=== PATIENT | female | born 1980 | race Caucasian/White ===

== ENCOUNTER → 2017-12-25 16:22 | Outpatient (CLI) | payer OTHER, MEDICAID, SELFPAY ==
[2018-01-01 10:46] LABS: AFP 54.6 ng/mL; Hx of Neural Tube Defect N; Inhibin A Value 241 pg/mL; Number of Fetuses 1; Prev Pregnancy with Down Syndr N
== END ==
PROVIDERS: PCP Obstetrics & Gynecology; Visit Provider Obstetrics & Gynecology
DX: Z34.82 Encounter for supervision of other normal pregnancy, second trimester (principal)
CPT/HCPCS: 36415; 82105; 82677; 84702; 86336

== ENCOUNTER → 2018-01-09 13:41 | Outpatient (CLI) | payer OTHER, MEDICAID, SELFPAY ==
--- NOTE | 2018-01-09 13:43 | DI.US.S_ITS ---
PROCEDURE: US OB >= 14 WEEKS FETUS INDICATIONS: 20 week anatomic survey OUTSIDE/PRIOR DATING DATA: Last menstrual period (LMP): 08/21/17. LMP-based estimated date of delivery (IRIS): 05/28/18. First dating scan (date and location): 10/29/17. Estimated date of delivery (IRIS) from first dating scan: 05/27/18. TECHNIQUE: Real-time scanning was performed of the fetus, with image documentation and biometric measurements. Endovaginal scanning: No COMPARISON: [facility] [facility], , OB >= 14 WEEKS FETUS, 12/25/2017, 16:14. FINDINGS: General: A single living intrauterine gestation is present. Presentation: Breech. Placenta: Placental position is posterior, without previa. Amniotic fluid index: 17.1 cm, normal range is 5-24 cm. heart rate: 150 beats per minute. Maternal cervical canal: 3.0 cm long. Normal lower limit is 2.5 cm. biometrics: Biparietal diameter: 20 weeks Head circumference: 20 weeks 2 days Abdominal circumference: 21 weeks 5 days Femur length: 21 weeks 1 day Estimated gestational age from initial scan: 20 weeks 2 days Composite gestational age from present scan: 20 weeks 6 days Estimated weight and percentile: 111 g; 92nd percentile Measurement variability for biometric dating: +/- 7 days from 14 weeks to 15 weeks 6 days gestation, +/- 10 days from 16 weeks to 21 weeks 6 days gestation, +/- 2 weeks from 22 weeks to 27 weeks 6 days gestation, +/- 3 weeks for 28 weeks gestation or later. weight reference: 4500 g or EFW >90/95% is considered macrosomia or large for gestational age. EFW <10% is small for gestational age. EFW 5% or less is considered intra-uterine growth restriction. Anatomic survey: Neuro: Ventricles are non-dilated at less than 10 mm. Cisterna magna is normal at 3-11 mm. Cerebellum is normal in size and morphology. Nuchal skin fold: Normal at less than 6 mm between 14-21 weeks gestational age. Face: Nose and lips, facial profile are normal. Spine: No evidence for spina bifida. Heart: 4-chambered heart is present, with normal ventricular outflow tracts. Diaphragm: Diaphragm is intact. Stomach: Left-sided stomach is present. Kidneys: No hydronephrosis. Normal is less than 5 mm in 2nd trimester, less than 7 mm in 3rd trimester. Cord: 3-vessel cord has orthotopic insertion. Bladder: Normal in size. Extremities: All 4 extremities identified. IMPRESSION: 1. Single living IUP redemonstrated and interval growth is upper limits of normal. 2. Normal anatomic survey. Dictated by: Jeet Mendoza [facility] Interpreted: Neetu Keys MD on 01/09/2018 at 14:37 Approved by: Neetu Keys MD, PhD on 01/09/2018 at 15:12
== END ==
PROVIDERS: PCP Obstetrics & Gynecology; Visit Provider Obstetrics & Gynecology
DX: Z34.92 Encounter for supervision of normal pregnancy, unspecified, second trimester (principal); Z36.89 Encounter for other specified antenatal screening; Z3A.20 20 weeks gestation of pregnancy
CPT/HCPCS: 76811

== ENCOUNTER → 2018-02-18 08:13 | Outpatient (CLI) | payer OTHER, MEDICAID, SELFPAY ==
[2018-02-18 11:02] LABS: GTT (PREG) 1 Hour PP 50gm Dose 170 mg/dL (76-139)
[2018-02-18 11:22] LABS: Hematocrit 35.1 % (36-46); Hemoglobin 12.2 g/dL (12.0-16.0)
== END ==
PROVIDERS: PCP Obstetrics & Gynecology; Visit Provider Obstetrics & Gynecology
DX: Z34.82 Encounter for supervision of other normal pregnancy, second trimester (principal)
CPT/HCPCS: 36415; 82950; 85014; 85018

== ENCOUNTER → 2018-03-04 07:30 | Outpatient (CLI) | payer OTHER, MEDICAID, SELFPAY ==
[2018-03-04 09:30] LABS: Glucose Fasting Gestational 84 mg/dL (76-95)
[2018-03-04 10:53] LABS: Glucose Tol Interp,Gestational INTERPRETATION
[2018-03-04 11:30] LABS: Glucose 2 Hour Gest 147 mg/dL (76-155)
[2018-03-04 13:58] LABS: Glucose 3 Hour Gest 104 mg/dL (76-140)
[2018-03-04 14:45] LABS: Glucose 1 Hour Gest 178 mg/dL (76-180)
== END ==
PROVIDERS: PCP Obstetrics & Gynecology; Visit Provider Obstetrics & Gynecology
DX: O99.810 Abnormal glucose complicating pregnancy (principal)
CPT/HCPCS: 36415; 82951; 82952

== ENCOUNTER → 2018-04-23 12:56 | Outpatient (CLI) | payer OTHER, MEDICAID, SELFPAY ==
[2018-04-24 13:03] LABS: Strep Grp B PCR POS for Grp B Strep
== END ==
PROVIDERS: PCP Obstetrics & Gynecology; Visit Provider Obstetrics & Gynecology
DX: Z3A.35 35 weeks gestation of pregnancy (principal)
CPT/HCPCS: 87653

== ENCOUNTER 2018-05-20 07:55 | Inpatient (IN) | payer OTHER, MEDICAID, SELFPAY ==
--- NOTE | 2018-05-20 08:02 | PM.PREOP ---
Pre-operative Note Interval Note Pre-op Check: Yes History & Physical Reviewed by Physician Changes: No
[2018-05-20 09:00] LABS: Add Manual Diff / Slide Review NO; Basophils Percent Auto 0.7 % (0-2); Eosinophils Percent Auto 1.9 % (2-4); Hematocrit 36.1 % (36-46); Hemoglobin 12.2 g/dL (12.0-16.0); Mean Corpuscular HGB Conc 33.9 % (30-36); Mean Corpuscular Hemoglobin 29.1 PG (26-34); Mean Corpuscular Volume 85.8 fL (80-100); Monocytes Percent Auto 8.6 % (3-14); Neutrophils Absolute Auto 8400 /uL (3000-5900); Neutrophils Percent Auto 67.8 % (50-75); Platelet Count 312 X10^3/uL (150-400); Red Blood Cell Count 4.21 X10^6/uL (4.0-5.2); Red Cell Distribution Width 13.8 % (11.6-14.8); White Blood Cell Count 12.4 X10^3/uL (4.5-11.0)
[2018-05-20] MEDS: CEFAZOLIN 2 GM/100 ML FROZ.PIGGY IV (10:41)
--- NOTE | 2018-05-20 11:14 | SUR.OPER ---
Supine on Padded OR bed, head on pillow, safety belt at thigh, arms secured on padded arm boards at <90 degrees abduction. Bump under right buttock. Legs uncrossed with pillow under knees, gel pad to heels, tape over blanket to lower legs.
[2018-05-20] MEDS: LACTATED RINGERS 1,000 ML 100 ML IV ×3 (11:25→22:19)
--- NOTE | 2018-05-20 12:02 | SUR.OPER ---
FHT preoperative =143, live female at 1119, APGARS 8/9
[2018-05-20 12:04] VITALS: BP 105/60; PULSE 68; RESP 10; TEMP 36.8; O2SAT 100
[2018-05-20 12:07] VITALS: BP 102/58; PULSE 68; RESP 12; O2SAT 100
[2018-05-20 12:10] VITALS: BP 103/64; PULSE 75; RESP 12; O2SAT 100
[2018-05-20 12:14] VITALS: BP 104/56; PULSE 71; RESP 14; O2SAT 100
[2018-05-20 14:45] VITALS: BP 116/73
[2018-05-20] MEDS: ONDANSETRON 4 MG/2 ML INJ IV ×2 (16:20→20:25)
[2018-05-20] MEDS: KETOROLAC 30 MG/ML VIAL IV ×2 (17:38→23:34)
--- NOTE | 2018-05-21 04:32 | PM.GYNOP.1 ---
Operative Date/Time/Diagnoses Date of procedure: 05/20/18 Time of procedure: 11:35 Pre-op diagnosis: 39 weeks gestation Previous C section x 2 Post-op diagnosis: same Procedure: Procedures Operation Date: 05/20/18 10:00 Actual Procedures Side Surgeon p Section-Repeat Amelie Ramirez MD Indications: 39 weeks gestation Previous section x2 Surgeon: Amelie Ramirez General Duty Nurse: Keyona Combs Anesthesia Type: Spinal (With Duramorph) Operative Notes Findings: Live female infant in the left occiput posterior presentation Normal tubes and ovaries Normal uterus Closure Type: primary Specimen(s): other (Cord bloods, placenta) Applied: catheter Estimated blood loss (mL): 350 Blood products transfused: none Procedure in detail: The patient was taken to the operating room where she was placed in the seated position. Spinal anesthesia with Duramorph was administered. The patient was then placed in the dorsal supine position with a leftward tilt. She was prepped and draped in the usual sterile fashion. A timeout was performed. After spinal analgesia was found to be adequate, a Pfannenstiel skin incision was made through the previous incision and carried through to the underlying layer fascia. The fascia was nicked in the midline, and the incision extended bilaterally with the Lo scissors. The superior aspect of the fascial incision was grasped with a Hartington clamps, elevated, and the underlying rectus muscles dissected off sharply and bluntly. Attention was then turned to the inferior aspect of this incision which in a similar fashion was grasped with a Owen clamps, elevated, and the underlying rectus muscles dissected off sharply and bluntly. The rectus muscles were in the midline. The peritoneum was identified, grasped between 2 hemostats, and entered sharply with the Metzenbaum scissors. This incision was extended superiorly and inferiorly with good visualization of the bladder. The bladder blade was inserted. The vesicouterine peritoneum was identified, grasped with the pickup, and entered sharply with the Metzenbaum scissors. This incision was extended bilaterally, and the bladder flap was created digitally. The bladder blade was reinserted. The lower uterine segment was incised in a transverse fashion with the scalpel. Upon entering the amniotic sac there was moderate amount of clear amniotic fluid. The infant's head was delivered with vacuum assistance. The nose and mouth were suctioned with bulb suction. The remainder of the body delivered without difficulty. The cord was double clamped and cut. The infant was handed off to waiting RN and RT. Pitocin was given in the IV fluids. The placenta was delivered manually. The uterus was cleared of all clots and debris. The uterine incision was repaired with #1 chromic in a running interlocking fashion, and a second layer the same suture was used for an imbricating layer. Hemostasis was achieved. The tubes and ovaries were examined and were found to be normal. The gutters were cleared of all clots and debris. The bladder flap was reapproximated using 2-0 Vicryl in a running fashion. The parietal peritoneum was closed using 2-0 Vicryl in a running fashion. The fascia was reapproximated using 0 Vicryl in a running fashion. The subcutaneous layer was copiously irrigated with warm normal saline. 6 simple interrupted sutures of 3-0 Vicryl were placed to reapproximate the subcutaneous layer. The skin was closed with 4-0 undyed Vicryl in a subcuticular fashion. Steri-Strips were placed. An Aquacell dressing was placed. The uterus was expressed of a small amount of old blood. Sponge, lap, and instrument counts were correct x-2. The patient tolerated the procedure well, and was taken to PACU in stable condition. Complications: none Post-operative Condition: stable Disposition: PACU Plan for aftercare: To Center after recovery
[2018-05-21] MEDS: KETOROLAC 30 MG/ML VIAL IV (05:54)
[2018-05-21 07:06] LABS: Hemoglobin 10.6 g/dL (12.0-16.0)
[2018-05-21] MEDS: PRENATAL VIT,CALC/IRON/FOLIC 1 TABLET 1 TAB PO (08:18)
[2018-05-21] MEDS: DOCUSATE 250 MG CAPSULE PO (08:21)
[2018-05-21] MEDS: IBUPROFEN 600 MG TABLET PO ×3 (12:00→23:10)
--- NOTE | 2018-05-21 23:44 | PM.OBPN.1 ---
Subjective - OB Interval history: Patient is a 37-year-old 3 para 3 postop day # 1 status post repeat low-transverse section Pain is well controlled with ibuprofen. Tolerating a diet. Zacarias catheter has been removed and patient has been able to void. Exam Vital Signs (past 8 hours): Oxygen Delivery Method Room Air Narrative Exam Narrative: Generally: Patient is sitting up in bed, holding , no acute distress Lungs: Clear to auscultation bilaterally Cardiovascular: Regular rate and rhythm Abdomen: Soft, good bowel sounds Fundus: Firm at U -1 Incision: Clean dry and intact with Aquacel dressing Extremities: Negative Homans, no edema Objective Labs Result Diagrams: 05/21/18 06:42 Labs: Laboratory Results - last 24 hr 05/21/18 06:42 Hgb 10.6 L Hct 32.0 L Assessment & Plan (1) Status post repeat low transverse section: Status: Acute Assessment and plan: Assessment: Postop day # 1 status post repeat low-transverse section, doing very well Plan: Continue routine postop care Anticipate discharge 05/22/2018 Current Visit: Yes Plan day: 1 plan OB: routine postop care Time Spent With Patient Total time spent is greater than 50% in coordination of care (as documented) at patient's floor/unit and/or counseling patient: less than 15 minutes
[2018-05-21] MEDS: OXYCODONE/ACETAMINOPHEN 5/325 TABLET 1 TAB PO (23:52)
[2018-05-22] MEDS: OXYCODONE/ACETAMINOPHEN 5/325 TABLET 1 TAB PO (00:44)
[2018-05-22 08:58] VITALS: TEMP 37.1
[2018-05-22] MEDS: IBUPROFEN 600 MG TABLET PO (08:58)
[2018-05-22] MEDS: DOCUSATE 250 MG CAPSULE PO (08:58)
[2018-05-22] MEDS: PRENATAL VIT,CALC/IRON/FOLIC 1 TABLET 1 TAB PO (08:58)
[2018-05-22] MEDS: OXYCODONE/ACETAMINOPHEN 5/325 TABLET 2 TAB PO (08:59)
[2018-05-22 14:24] VITALS: BP 116/73; PULSE 71; RESP 14; TEMP 37.1
--- NOTE | 2018-06-21 15:22 | P.DS_ITS ---
Discharge Providers Date of admission: 05/20/18 07:55 Primary care physician: Amelie Ramirez MD Consults: 05/20/18 14:00 Consult to [employer] [facility] Routine Comment: Discharge provider: Amelie Ramirez MD Discharge Date: 05/22/18 Summary Date Patient Seen: 05/22/18 Time Patient Seen: 07:45 Hospital Course: Patient is a 37-year-old 3 para 3 who presented on 05/20/2018 for a scheduled repeat section. She underwent a repeat section without complication. Her postoperative course was unremarkable and she was discharged home on 2017 Peripartum Data Infant Delivery Method: Section Laceration description: None Episiotomy description: None Procedures: Spinal anesthesia Repeat section complications: none Discharge Diagnosis (1) Status post repeat low transverse section: Status: Acute Status at Discharge Functional status at discharge: independent ambulation Overall status at discharge: patient is progressing back to baseline Time Spent with Patient Total time spent providing and/or coordinating discharge services: Less than 30 minutes Objective Labs Result Diagrams: 05/21/18 06:42 Discharge Plan Discharge Plan Patient Disposition: Home Discharge comment: Call with fever, chills, redness or drainage around incisionorn or bleeding vaginally more than a pad in an hour Discharge Med Rec/Prescriptions Prescriptions: New oxycodone-acetaminophen [Percocet] 5-325 mg tablet 2 tab PO Q4-6H PRN (Reason: pain) Qty: 30 RF: 0 No Action levothyroxine [Synthroid] 75 mcg tablet 0.075 mg PO QAM Qty: 90 RF: 5 Follow up/Referrals: Amelie Ramirez MD [Primary Care Provider] - 1 Week (Appointment with on at 10:00,aquacell removal appointment on at 11:00am) Provider Discharge Instructions Diet: Diet as Tolerated Activity: No heavy lifting Skin/Wound/Dressing Care Report to your healthcare provider any signs of infection, such as:: chills, fever, increased pain and unusual drainage Dressing: Do not remove Visit Report/Discharge Packet Instructions: DI for Visit Report Forms: Stroke Signs & Symptoms Discharge Data Primary Care Provider: Amelie Ramirez Attending Provider: Garde,Amelie A Admit Date/Time: 05/20/18 07:55 Discharges patient from system. Discharge Date/Time: 05/22/18 15:15
== END 2018-05-22 15:15 | disposition home or self-care (01) | DRG 540 ==
PROVIDERS: Admitting Provider Obstetrics & Gynecology; PCP Obstetrics & Gynecology; Visit Provider Obstetrics & Gynecology
PROC: 10D00Z1 Extraction of Products of Conception, Low, Open Approach (ICD-10-PCS; CPT 59514; principal; 2018-05-20 10:00)
DX: O34.219 Maternal care for unspecified type scar from previous cesarean delivery (principal); O64.0XX0 Obstructed labor due to incomplete rotation of fetal head, not applicable or unspecified; Z3A.39 39 weeks gestation of pregnancy; Z37.0 Single live birth
CPT/HCPCS: 36415; 59050; 59514; 85014; 85018; 85025; 86850; 86900; 86901; J0690; J1100; J1885; J2274; J2405; J2590

== ENCOUNTER → 2018-05-30 12:00 | Outpatient (CLI) | payer OTHER, MEDICAID, SELFPAY ==
[2018-05-30 14:22] LABS: Free T3, Triiodothyronine Free 3.61 pg/mL (2.77-5.27)
[2018-05-30 14:35] LABS: Thyroid Stimulating Hormone 1.73 uIU/mL (0.47-4.68)
[2018-05-30 16:03] LABS: Free T4, Direct Thyroxine 1.15 ng/dL (0.78-2.19)
== END ==
PROVIDERS: Family Provider Obstetrics & Gynecology; PCP Family Medicine; Visit Provider Family Medicine
DX: E89.0 Postprocedural hypothyroidism (principal)
CPT/HCPCS: 36415; 84439; 84443; 84481

== ENCOUNTER → 2019-07-18 10:32 | Outpatient (CLI) | payer OTHER, SELFPAY ==
[2019-07-18 12:21] LABS: Free T3, Triiodothyronine Free 3.54 pg/mL (2.77-5.27); Free T4, Direct Thyroxine 1.13 ng/dL (0.78-2.19)
[2019-07-18 12:35] LABS: Thyroid Stimulating Hormone 1.87 uIU/mL (0.47-4.68)
== END ==
PROVIDERS: PCP Family Medicine; Visit Provider Family Medicine
DX: E89.0 Postprocedural hypothyroidism (principal)
CPT/HCPCS: 36415; 84439; 84443; 84481

== ENCOUNTER → 2019-09-10 16:31 | Outpatient (CLI) | payer OTHER, SELFPAY | PROVIDERS: PCP Family Medicine; Visit Provider Obstetrics & Gynecology | DX: R30.0 Dysuria (principal) | CPT/HCPCS: 87077; 87086; 87186 ==

== ENCOUNTER → 2020-08-04 12:53 | Outpatient (CLI) | payer OTHER, SELFPAY ==
--- NOTE | 2020-08-04 12:55 | DI.US.S_ITS ---
PROCEDURE: US THYROID INDICATIONS: STATUS POST THYROIDECTOMY TECHNIQUE: Real-time scanning was performed of the thyroid gland, with image documentation. COMPARISON: None. FINDINGS: Right: Surgically absent Left: Thyroid lobe measures 3.5 x 1.2 x 0.7 cm, and is homogenous in echotexture. Isthmus: 3 mm thick. No discrete thyroid nodule identified IMPRESSION: Status post right thyroidectomy ACR TI-RADS definitions and recommendations: TI-RADS 1 (benign): 0 points. FNA not needed. TI-RADS 2 (not suspicious): 2 points. FNA not needed. TI-RADS 3 (mildly suspicious): 3 points. * FNA if 2.5 cm or larger, follow up if 1.5 cm or larger (at 1, 3, and 5 years). TI-RADS 4 (moderately suspicious): 4-6 points. * FNA if 1.5 cm or larger, follow up if 1 cm or larger (at 1, 2, 3, and 5 years). TI-RADS 5 (highly suspicious): 7 points or more. * FNA if 1 cm or larger, follow up if 0.5 cm or larger (every year for 5 years). Dictated by: Sd Moreno M.D. on 08/04/2020 at 15:32 Approved by: Sd Moreno M.D. on 08/04/2020 at 15:33
== END ==
PROVIDERS: PCP Family Medicine; Referring Provider Family Medicine; Visit Provider Family Medicine
DX: E89.0 Postprocedural hypothyroidism (principal)
CPT/HCPCS: 36415; 76536; 84443

== ENCOUNTER → 2021-09-10 08:33 | Outpatient (CLI) | payer OTHER, SELFPAY ==
[2021-09-10 09:28] LABS: Add Manual Diff / Slide Review NO; Basophils Absolute Auto 100 /uL (0-100); Basophils Percent Auto 1.3 % (0-2); Eosinophils Absolute Auto 300 /uL (0-450); Eosinophils Percent Auto 5.3 % (2-4); Hematocrit 40.4 % (36-46); Lymphocytes Absolute Auto 2400 /uL (1100-4500); Lymphocytes Percent Auto 37.9 % (25-40); Mean Corpuscular HGB Conc 34.8 % (30-36); Mean Corpuscular Hemoglobin 31.6 PG (26-34); Monocytes Absolute Auto 600 /uL (0-900); Monocytes Percent Auto 8.7 % (3-14); Neutrophils Absolute Auto 3000 /uL (1500-7000); Neutrophils Percent Auto 46.8 % (50-75); Platelet Count 316 X10^3/uL (150-400); Red Blood Cell Count 4.44 X10^6/uL (4.0-5.2); Red Cell Distribution Width 12.3 % (11.6-14.8); White Blood Cell Count 6.4 X10^3/uL (4.5-11.0)
[2021-09-10 10:03] LABS: Alanine Aminotransferase 14 IU/L (<35); Albumin 4.4 g/dL (3.5-5.0); Albumin Globulin Ratio 1.4 (1.0-2.8); Alkaline Phosphatase 36 U/L (38-126); Aspartate Aminotransferase 23 IU/L (14-36); BUN Creatinine Ratio 11.3 (6-22); Bilirubin Total 0.7 mg/dL (0.2-1.3); Blood Urea Nitrogen 8 mg/dL (7-17); Calcium 9.1 mg/dL (8.4-10.2); Carbon Dioxide 28 mmol/L (22-32); Chloride 105 mmol/L (98-107); Cholesterol 243 mg/dL (140-199); Estimated Glomerular Filt Rate > 60.0 mL/min (>60); Globulin 3.2 g/dL (1.7-4.1); Glucose 99 mg/dL (70-100); HDL Cholesterol 48 mg/dL (40-60); HEMOLYSIS < 15 (0-50); LDL Cholesterol Calculated 177 mg/dL (<100); Potassium 4.2 mmol/L (3.4-5.1); Sodium 138 mmol/L (137-145); Total Protein 7.6 g/dL (6.3-8.2); Triglycerides 89 mg/dL (35-150)
== END ==
PROVIDERS: Physician Assistant; PCP Family Medicine; Referring Provider Family Medicine; Visit Provider Family Medicine
DX: E89.0 Postprocedural hypothyroidism (principal); Z13.0 Encounter for screening for diseases of the blood and blood-forming organs and certain disorders involving the immune mechanism; Z13.220 Encounter for screening for lipoid disorders; Z13.6 Encounter for screening for cardiovascular disorders
CPT/HCPCS: 36415; 80053; 80061; 84443; 85025

== ENCOUNTER → 2021-09-17 13:29 | Outpatient (CLI) | payer OTHER, SELFPAY ==
--- NOTE | 2021-09-17 13:30 | DI.MG.S_ITS ---
BILATERAL DIGITAL SCREENING MAMMOGRAM 3D/2D WITH CAD: 09/17/2021 CLINICAL: Routine screening. Baseline exam. No prior exams were available for comparison. The tissue of both breasts is heterogeneously dense. This may lower the sensitivity of mammography. Current study was also evaluated with a Computer Aided Detection (CAD) system. No significant masses, calcifications, or other findings are seen in either breast. IMPRESSION: NEGATIVE There is no mammographic evidence of malignancy. A 1 year screening mammogram is recommended. This exam was interpreted at Station ID: [id number]. NOTE: For mammograms, a report in lay terms will be sent to the patient. Approximately 15% of breast malignancies will not be visualized mammographically. In the management of a palpable breast mass, a negative mammogram must not discourage biopsy of a clinically suspicious lesion. Electronically Signed By: Samia camejo/juan miguel:09/19/2021 13:09:33 letter sent: Normal Exam ACR BI-RADS Category 1: Negative [id number]
== END ==
PROVIDERS: PCP Family Medicine; Referring Provider Internal Medicine; Visit Provider Internal Medicine
DX: Z12.31 Encounter for screening mammogram for malignant neoplasm of breast (principal)
CPT/HCPCS: 77063; 77067

== ENCOUNTER 2022-02-09 19:20 | Emergency (ER) | payer OTHER, SELFPAY ==
[2022-02-09 19:28] VITALS: BP 128/68; PULSE 99; RESP 15; TEMP 36.7; O2SAT 99
[2022-02-09 19:31] VITALS: PULSE 100; O2SAT 99
--- NOTE | 2022-02-09 19:45 | ED.ALLEREA ---
HPI - Allergic Reaction General Chief complaint: Allergic Reaction Stated complaint: food poisioning/rash Time Seen by Provider: 02/09/22 19:43 Source: patient Mode of arrival: Ambulatory History of Present Illness HPI narrative: 41F nonsmoker with history of hypothyroid presents with her in the chief complaint of a widespread and worsening rash over much of her body that is itching and red since consuming some sockeye salmon a few hours ago. She denies any facial, tongue, lip or throat swelling and has no trouble swallowing or breathing. She does however have GI symptoms including 2-3 episodes of vomiting and 2-3 episodes of diarrhea that happened in the immediate aftermath. She has cramping generalized abdominal pain that seems to improve with each episode of emesis or diarrhea. She denies any urinary complaints. She denies any new medicines, lotions, clothing or any other obvious exposure. She is never had any issues with salmon in the past and denies any history of anaphylaxis. She took diphenhydramine 25 mg p.o. at home with little to no relief. Related Data Previous Rx's Medication Instructions Recorded levothyroxine 75 mcg tablet See Rx Instructions .Route 11/21/21 .COMPLEX #90 tabs epinephrine 0.3 mg/0.3 mL 0.3 mg (0.3 mL) IM Q5-15M PRN 02/09/22 injection, auto-injector (EpiPen anaphylaxis #2 ea 2-Benny) ondansetron 4 mg disintegrating 4 mg PO TID-QID PRN nausea and 02/09/22 tablet vomiting #10 tabs prednisone 20 mg tablet 20 mg PO DAILY #5 tabs 02/09/22 Allergies Allergy/AdvReac Type Severity Reaction Status Date / Time fish derived Allergy Anaphylaxis Verified 02/09/22 21:32 Review of Systems Review of Systems Narrative: GENERAL: See HPI HEENT: Denies sinus pain, ear pain, sore throat, difficulty swallowing, dizziness. RESPIRATORY: Denies dyspnea, cough, wheezing, hemoptysis, sputum. CARDIOVASCULAR: Denies chest pain, palpitations, orthopnea, edema, GASTROINTESTINAL: See HPI : Denies dysuria, frequency, incontinence, hematuria, urinary retention. MUSCULOSKELETAL: denies weakness, joint pain, or bony pain SKIN: See HPI NEUROLOGIC: Denies weakness, headache, numbness, change in speech, confusion, seizures, incoordination. PSYCHIATRIC: No concerning psychosocial issues. 12 point review of systems is negative except for those stated above Patient History Medical History Acne History of partial thyroidectomy (06/06/16) Infertility (~2010) Rubella (~1995) Surgical History Anesthesia History of third molar tooth extraction Status post delivery (06/27/10) Status post delivery (10/18/12) Status post repeat low transverse section Family History Father Age: 69 Hypertension CAD (coronary artery disease) Lipids abnormal Mother Age: 72 Hypothyroid Thyroid cancer Deep vein thrombosis (DVT) Social History marital status: Smoking Status: Never smoker alcohol intake: current (1-3 A WEEK ) substance use type: does not use Smoking Status: Never smoker alcohol intake frequency: holidays/special occasions only Substance Use Type: does not use Exam Narrative Exam Narrative: GENERAL: [41] year old patient appears stated age. Well-developed patient, in mild distress. No evidence of respiratory distress HEAD: Atraumatic. Normocephalic. EYES: Pupils equal round and reactive. Extraocular motions intact. No scleral icterus. No injection or drainage. ENT: No facial, lip, tongue or throat swelling. Nose without bleeding, purulent drainage. Throat without erythema, tonsillar hypertrophy or exudate. Airway patent. NECK: Trachea midline. Non tender CARDIOVASCULAR: Regular rate and rhythm without murmurs, gallops, or rubs. RESPIRATORY: Clear to auscultation. Breath sounds equal bilaterally. No wheezes, rales, or rhonchi. No use of accessory muscles GASTROINTESTINAL: Abdomen soft, non-tender, nondistended. EXTREMITIES: No edema or joint tenderness. BACK: Nontender without deformity or crepitance. No flank tenderness. NEURO: AOx3. SKIN: Widespread pruritic erythematous blanching rash with urticaria Initial Vital Signs Initial Vital Signs: Vital Signs Temperature 98.0 F 02/09/22 19:28 Pulse Rate 99 H 02/09/22 19:28 Respiratory Rate 15 02/09/22 19:28 Blood Pressure 128/68 02/09/22 19:28 Pulse Oximetry 99 02/09/22 19:28 Oxygen Delivery Method 02/09/22 19:28 Course Orders Ordered: Discontinued Medications Dexamethasone (Dexamethasone 10 Mg/Ml Vial) 10 mg IV NOW ONE Stop: 02/09/22 19:44 Last Admin: 02/09/22 19:54 Dose: 10 mg Documented By: AIRAM Diphenhydramine HCl (Diphenhydramine 50 Mg/Ml Vial) 50 mg IV NOW ONE Stop: 02/09/22 19:46 Last Admin: 02/09/22 19:54 Dose: 50 mg Documented By: AIRAM Epinephrine HCl (Epinephrine 1 Mg/Ml) 0.5 mg IM NOW ONE Stop: 02/09/22 19:44 Last Admin: 02/09/22 19:52 Dose: 0.5 mg Documented By: AIRAM Famotidine (Famotidine 20 Mg/2 Ml Vial) 20 mg IV NOW CRISTIAN Last Admin: 02/09/22 19:54 Dose: 20 mg Documented By: AIRAM Sodium Chloride (Normal Saline 0.9%) 1,000 mls @ 1,000 mls/hr IV BOLUS ONE Stop: 02/09/22 20:42 Last Infusion: 02/09/22 21:40 Dose: 0 mls/hr Documented By: Admin: 02/09/22 19:59 Dose: 1,000 mls/hr Documented By: AIRAM Vital Signs Vital signs: Vital Signs - 8 hr 02/09/22 19:28 02/09/22 19:31 02/09/22 19:59 Temperature 98.0 F Pulse Rate 99 H 100 H Respiratory Rate 15 Blood Pressure 128/68 139/71 Pulse Oximetry 99 99 Oxygen Delivery Method Room Air 02/09/22 19:59 02/09/22 20:00 02/09/22 20:00 Temperature Pulse Rate 104 H 100 H Respiratory Rate 14 14 Blood Pressure 146/71 H Pulse Oximetry 100 100 Oxygen Delivery Method 02/09/22 20:30 02/09/22 20:30 02/09/22 21:00 Temperature Pulse Rate 94 H Respiratory Rate 16 Blood Pressure 140/63 117/60 Pulse Oximetry 100 Oxygen Delivery Method 02/09/22 21:00 Temperature Pulse Rate 76 Respiratory Rate 17 Blood Pressure Pulse Oximetry 100 Oxygen Delivery Method MDM - Allergic Reaction MDM Narrative Medical decision making narrative: Patient with widespread rash and a few episodes of vomiting and diarrhea after consuming salmon. At no point did she have any facial swelling, difficulty swallowing or breathing. She is remained hemodynamically stable and had a tremendous improvement after above-stated therapies. She was observed for 2 hours and discharged with prescriptions, return precautions and questions answered to her apparent satisfaction Discharge Plan Departure Patient Disposition: Home Clinical Impression: Anaphylaxis Instructions: DI for Anaphylaxis Activity Restrictions/Additional Instructions: *You have been diagnosed with [allergic reaction] *What to do: *Please continue to take your regular medications as directed. [x ] New medication prescriptions sent to your pharmacy: [facility] ] [ ] New medication written as a paper prescription [ ] No new medications given *Please consider the routine use of over the counter antihistamines over the next few days 1. H1 blockers: Benadryl (Diphenhydramine), Zyrtec (Cetirizine), Vania (Fexofenadine) or Claritin (Loratadine) along with, 2. H2 blockers: Famotidine or Cimetidine *If you can please avoid what triggered your reaction today *Please follow up with your primary care provider in 2-3 days, call for an appointment. Let them know you were seen in the Emergency Department and that we ask that you be seen in follow up. We will electronically transmit a record of today's note if your PCP is in our system *If you do not have a primary care provider please contact the [facility] Resource line at [phone]. They will ask some questions about your medical history and help get you set up with a doctor in the community. *Return to Emergency Department if you should have any new, worsening or concerning symptoms, such as swelling of tongue, throat, trouble breathing, or other concerning symptoms Prescriptions: New prednisone 20 mg tablet 20 mg PO DAILY Qty: 5 0RF Rx Instructions: administer with food or milk epinephrine [EpiPen 2-Benny] 0.3 mg/0.3 mL auto-injector 0.3 mg IM Q5-15M PRN (Reason: anaphylaxis) Qty: 2 0RF Rx Instructions: do not exceed 3 doses per episode ondansetron 4 mg tablet,disintegrating 4 mg PO TID-QID PRN (Reason: nausea and vomiting) Qty: 10 0RF No Action levothyroxine 75 mcg tablet See Rx Instructions .ROUTE .COMPLEX Qty: 90 3RF Dose Instruction: TAKE ONE TABLET BY MOUTH ONE TIME DAILY Rx Instructions: TAKE ONE TABLET BY MOUTH ONE TIME DAILY Referrals: Dorian Jurado MD [Primary Care Provider] - Visit Report Forms: Patient Portal/API
[2022-02-09] MEDS: EPINEPHrine 1 MG/ML 0.5 MG IM (19:52)
[2022-02-09] MEDS: diphenhydrAMINE 50 MG/ML VIAL IV (19:54)
[2022-02-09] MEDS: DEXAMETHASONE 10 MG/ML VIAL IV (19:54)
[2022-02-09] MEDS: FAMOTIDINE 20 MG/2 ML VIAL IV (19:54)
[2022-02-09 19:59] VITALS: BP 139/71; PULSE 104; RESP 14; O2SAT 100
[2022-02-09] MEDS: SODIUM CHLORIDE 0.9% 1,000 ML 1000 ML IV (19:59)
[2022-02-09 20:00] VITALS: BP 146/71; PULSE 100; RESP 14; O2SAT 100
--- NOTE | 2022-02-09 20:00 | PC.NURSE ---
pt has generalized rash noted over most of body, with some julian-orbital swelling noted
--- NOTE | 2022-02-09 20:15 | PC.NURSE ---
rash now barely noticeable with julian orbital swelling decreased
[2022-02-09 20:30] VITALS: BP 140/63; PULSE 94; RESP 16; O2SAT 100
[2022-02-09 21:00] VITALS: BP 117/60; PULSE 76; RESP 17; O2SAT 100
== END 2022-02-09 21:40 | disposition home or self-care (01) ==
PROVIDERS: Emergency Provider Emergency Medicine; PCP Family Medicine
DX: R21 Rash and other nonspecific skin eruption (principal); R11.10 Vomiting, unspecified; T78.40XA Allergy, unspecified, initial encounter
CPT/HCPCS: 96361; 96372; 96374; 96375; 99284; J0171; J1100; J1200

== ENCOUNTER 2022-05-18 15:15 | Outpatient (RCR) | payer OTHER, SELFPAY ==
--- NOTE | 2022-04-03 18:23 | PT.OIE ---
Current Diagnoses Pain in right shoulder (04/03/22) Pain in left shoulder (04/03/22) Stiffness of other specified joint, not elsewhere classified (04/03/22) Cervicalgia (04/03/22) Dorsalgia, unspecified (04/03/22) Past Medical History (Last Reviewed 02/09/22 @ 19:47 by Carols Eduardo Tolentino DO) Acne History of partial thyroidectomy (06/06/16) Infertility (~2010) Rubella (~1995) Past Surgical History (Last Reviewed 02/09/22 @ 19:47 by Carlos Eduardo Tolentino DO) Anesthesia History of third molar tooth extraction Status post delivery (06/27/10) Status post delivery (10/18/12) Status post repeat low transverse section Visit Care Team Role Provider Type Dorian Jurado MD Attending Provider Physician Family Provider Primary Care Provider Referring Provider Specialty: Family Practice Address: [address] [place] [address] Email: [email or web address] Physical Therapy Initial Evaluation PT-OP-A Visit Information Start: 04/03/22 18:00 Freq: Status: Active Protocol: Document 04/03/22 16:00 DCW (Rec: 04/03/22 18:08 DCW [id number]) Out-Patient Physical Therapy Visit Information Visit Information Visit Type Initial Evaluation Visit Start Time 16:00 Visit Stop Time 16:40 Total Visit Minutes 40 Visit Number 1 Number of FIBRE OPTIC CABLE SPLICER Visits 0 Evaluation Information Evaluation Date 04/03/22 PT-OP-B Current Condition Start: 04/03/22 18:00 Freq: Status: Active Protocol: Document 04/03/22 16:00 DCW (Rec: 04/03/22 18:15 DCW [id number]) Current Condition History of Current Condition Onset Date Multi-year history Current Complaints Cervical stiffness, R>L History of Current Condition Pt is a 41 year old female presenting with a multi-year history of cervical stiffness and muscle tightness. She believes it may have started when her children (currently aged 11, 9, and 3) were born and she spent most of her time carrying them around in her right arm. She has done some home stretching, like cat/ camel, which helps some, as well as using her hands to perform self-sustained pressure. Notes she does not let it stop her from working or doing chores around the home. It was pretty sore yesterday after spending the day painting, notes her right arm felt pretty heavy afterward. PT-OP-C Subjective Start: 04/03/22 18:00 Freq: Status: Active Protocol: Document 04/03/22 16:00 DCW (Rec: 04/03/22 18:08 DCW [id number]) OP-PT Subjective Patient Comments Patient Comments I don't let it limit what I do, it just always feels tight . Patient Questionnaires Neck Disability Index NDI Score 50 = 22% OP-PT Pain Assessment Pain Assessment Grid Paper Pain Assessment Grid Completed No PT-OP-F Manual Assessment Start: 04/03/22 18:00 Freq: Status: Active Protocol: Document 04/03/22 16:00 DCW (Rec: 04/03/22 18:15 DCW [id number]) Manual Assessments Soft Tissue Assessment Soft Tissue Mobility Assessment Severe tone R>L with tenderness to palpation 2/4: Pain with wincing along B traps, scalenes, SCM, levator scap, and rhomboids. PT-OP-K Range of Motion Start: 04/03/22 18:00 Freq: Status: Active Protocol: Document 04/03/22 16:00 DCW (Rec: 04/03/22 18:15 DCW [id number]) Cervical Spine Range of Motion Cervical Spine Active Degrees Testing Position Sitting Flexion 15 Extension 50 Rotation Left 60 Rotation Right 75 Lateral Flexion Left 40 Lateral Flexion Right 40 ROM Limitations Soft Tissue Tightness,Muscle Tone PT-OP-L Special Tests Start: 04/03/22 18:00 Freq: Status: Active Protocol: Document 04/03/22 16:00 DCW (Rec: 04/03/22 18:15 DCW [id number]) Special Tests Cervical Spine Special Tests Traction Test Results Negative Spurling's Test Test Results Negative Slump Test Results Negative Foraminal Compression Test Results Negative PT-OP-Q Treatments Start: 04/03/22 18:00 Freq: Status: Active Protocol: Document 04/03/22 16:00 DCW (Rec: 04/03/22 18:08 DCW [id number]) Therapeutic Exercises Sitting Exercises SCM stretch Sitting Exercise Name SCM stretch Upper trap stretch Sitting Exercise Name 1. Lateral flexion 2. Lateral flexion, cervical flexion, and rotation PT-OP-T Assessment and Plan Start: 04/03/22 18:00 Freq: Status: Active Protocol: Document 04/03/22 16:00 DCW (Rec: 04/03/22 18:23 DCW [id number]) Physical Therapy Assessment Rehab Potential Rehabilitation Potential Good Evaluation Complexity Number of Personal Factors/Comorbidities 0 Number of Body Systems Impaired 1-2 Clinical Presentation at Evaluation Stable Impairments Impairments Functional Activities, Functional Mobility,Pain,ROM, Soft Tissue Mobility,Tone Goals Two Impairment Limited cervical ROM secondary to soft tissue tone Fdc Goal (LTG) Pt to decrease tone in cervical musculature in order to improve cervical flexion to at least 30? and left cervical rotation to 75? 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 LTG Duration 06/03/22 One Impairment Pt does not have an appropriate HEP Short Term Goal (STG) Pt to be independent and compliant with an appropriate HEP STG Duration 05/03/22 Assessment Summary Assessment Pt presents with fairly significant tone throughout her cervical musculature, R>L. Unable to provoke and cervical pain with special testing, pt does not complain of any symptoms which would be suggestive of neuro involvement. Pt mostly limited with flexion and left rotation, which likely suggests that biggest area of concern is right upper trap/ Pt did not some improvement following brief STM during assessment. Pt given stretching for HEP to being to help loosen muscles. Pt will likely benefit from skilled therapy focusing on flexibility and STM. Physical Therapy Plan Frequency and Duration Frequency of Treatment 1-2x/week Duration of Treatment Two months Plan of Care Start Date 04/03/22 Plan of Care End Date 06/03/22 Therapeutic Interventions Therapeutic Interventions Home Exercise Program,Joint Mobilizations,Manual Therapy, Patient/Caregiver Education, Self-Care/Home Management,Soft Tissue Mobilization, Therapeutic Activities, Therapeutic Exercises Modalities Hot Packs,Ultrasound Next Visit Focus/Plan Next Note Type Treatment Note Next Visit Plan Flexibility, STM
--- NOTE | 2022-04-03 18:24 | PT.OPPOC ---
Physical, Occupational & Speech Therapy At [facility] Current Diagnoses Pain in right shoulder (04/03/22) Pain in left shoulder (04/03/22) Stiffness of other specified joint, not elsewhere classified (04/03/22) Cervicalgia (04/03/22) Dorsalgia, unspecified (04/03/22) Visit Care Team Role Provider Type Dorian Jurado MD Attending Provider Physician Family Provider Primary Care Provider Referring Provider Specialty: Family Practice Address: [address] [place] [address] Email: [email or web address] Plan Of Care PT-OP-T Assessment and Plan Start: 04/03/22 18:00 Freq: Status: Active Protocol: Document 04/03/22 16:00 DCW (Rec: 04/03/22 18:23 DCW [id number]) Physical Therapy Assessment Rehab Potential Rehabilitation Potential Good Evaluation Complexity Number of Personal Factors/Comorbidities 0 Number of Body Systems Impaired 1-2 Clinical Presentation at Evaluation Stable Impairments Impairments Functional Activities, Functional Mobility,Pain,ROM, Soft Tissue Mobility,Tone Goals Two Impairment Limited cervical ROM secondary to soft tissue tone Air Brush Decorator Goal (LTG) Pt to decrease tone in cervical musculature in order to improve cervical flexion to at least 30? and left cervical rotation to 75? 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 LTG Duration 06/03/22 One Impairment Pt does not have an appropriate HEP Short Term Goal (STG) Pt to be independent and compliant with an appropriate HEP STG Duration 05/03/22 Assessment Summary Assessment Pt presents with fairly significant tone throughout her cervical musculature, R>L. Unable to provoke and cervical pain with special testing, pt does not complain of any symptoms which would be suggestive of neuro involvement. Pt mostly limited with flexion and left rotation, which likely suggests that biggest area of concern is right upper trap/ Pt did not some improvement following brief STM during assessment. Pt given stretching for HEP to being to help loosen muscles. Pt will likely benefit from skilled therapy focusing on flexibility and STM. Physical Therapy Plan Frequency and Duration Frequency of Treatment 1-2x/week Duration of Treatment Two months Plan of Care Start Date 04/03/22 Plan of Care End Date 06/03/22 Therapeutic Interventions Therapeutic Interventions Home Exercise Program,Joint Mobilizations,Manual Therapy, Patient/Caregiver Education, Self-Care/Home Management,Soft Tissue Mobilization, Therapeutic Activities, Therapeutic Exercises Modalities Hot Packs,Ultrasound Next Visit Focus/Plan Next Note Type Treatment Note Next Visit Plan Flexibility, STM Plan of Care Dates Plan of Care Start Date 04/03/22 Plan of Care End Date 06/03/22 Electronically Signed by: Murali Lopez, PT 04/03/22 3504 If you are in agreement with this Plan of Care, please return a signed and dated copy. I have reviewed this Plan of Care and certify that the skilled therapy services above are required to meet the patient?s needs. Physician Signature Date Printed Name and Credentials Clinical Instructor Signature Printed Name and Credentials
--- NOTE | 2022-04-07 16:44 | PT.OTN ---
Current Diagnoses Pain in right shoulder (04/07/22) Pain in left shoulder (04/07/22) Stiffness of other specified joint, not elsewhere classified (04/07/22) Cervicalgia (04/07/22) Dorsalgia, unspecified (04/07/22) Physical Therapy Treatment Note PT-OP-A Visit Information Start: 04/03/22 18:00 Freq: Status: Active Protocol: Document 04/07/22 16:00 DCW (Rec: 04/07/22 16:44 DCW [id number]) Out-Patient Physical Therapy Visit Information Visit Information Visit Type Treatment Note Visit Start Time 16:00 Visit Stop Time 16:40 Total Visit Minutes 40 Visit Number 2 Number of TANK HOOP BENDER Visits 0 Evaluation Information Evaluation Date 04/03/22 PT-OP-B Current Condition Start: 04/03/22 18:00 Freq: Status: Active Protocol: Document 04/03/22 16:00 DCW (Rec: 04/03/22 18:15 DCW [id number]) Current Condition History of Current Condition Onset Date Multi-year history Current Complaints Cervical stiffness, R>L History of Current Condition Pt is a 41 year old female presenting with a multi-year history of cervical stiffness and muscle tightness. She believes it may have started when her children (currently aged 11, 9, and 3) were born and she spent most of her time carrying them around in her right arm. She has done some home stretching, like cat/ camel, which helps some, as well as using her hands to perform self-sustained pressure. Notes she does not let it stop her from working or doing chores around the home. It was pretty sore yesterday after spending the day painting, notes her right arm felt pretty heavy afterward. PT-OP-C Subjective Start: 04/03/22 18:00 Freq: Status: Active Protocol: Document 04/07/22 16:00 DCW (Rec: 04/07/22 16:44 DCW [id number]) OP-PT Subjective Patient Comments Patient Comments Doing some stretching, feeling a bit better, but still feels pretty tight. PT-OP-F Manual Assessment Start: 04/03/22 18:00 Freq: Status: Active Protocol: Document 04/03/22 16:00 DCW (Rec: 04/03/22 18:15 DCW [id number]) Manual Assessments Soft Tissue Assessment Soft Tissue Mobility Assessment Severe tone R>L with tenderness to palpation 2/4: Pain with wincing along B traps, scalenes, SCM, levator scap, and rhomboids. PT-OP-K Range of Motion Start: 04/03/22 18:00 Freq: Status: Active Protocol: Document 04/03/22 16:00 DCW (Rec: 04/03/22 18:15 DCW [id number]) Cervical Spine Range of Motion Cervical Spine Active Degrees Testing Position Sitting Flexion 15 Extension 50 Rotation Left 60 Rotation Right 75 Lateral Flexion Left 40 Lateral Flexion Right 40 ROM Limitations Soft Tissue Tightness,Muscle Tone PT-OP-L Special Tests Start: 04/03/22 18:00 Freq: Status: Active Protocol: Document 04/03/22 16:00 DCW (Rec: 04/03/22 18:15 DCW [id number]) Special Tests Cervical Spine Special Tests Traction Test Results Negative Spurling's Test Test Results Negative Slump Test Results Negative Foraminal Compression Test Results Negative PT-OP-Q Treatments Start: 04/03/22 18:00 Freq: Status: Active Protocol: Document 04/07/22 16:00 DCW (Rec: 04/07/22 16:44 DCW [id number]) Therapeutic Exercises Sitting Exercises Isometric extension Sitting Exercise Name Isometric cervical rotation Resistance Lv 2 Resisted Rotation Sitting Exercise Name Resisted cervical rotation Side bilateral Resistance Lv 2 Resisted lat flex Sitting Exercise Name Resisted cervical lateral flexion Side bilateral Resistance Lv 2 Manual Therapy Treatment Soft Tissue Mobilization SCM Body Location B SCM Mobilization Type Strumming,Sustained Pressure, Trigger Point Release Intensity/Depth Moderate Body Position Supine Scalenes Body Location B Scalenes Mobilization Type Strumming,Sustained Pressure, Trigger Point Release Intensity/Depth Moderate Body Position Supine Levator scap Body Location B levator Mobilization Type Strumming,Sustained Pressure, Trigger Point Release Intensity/Depth Moderate Body Position Supine Upper Trap Body Location B UT Mobilization Type Strumming,Sustained Pressure, Trigger Point Release Intensity/Depth Moderate Body Position Supine PT-OP-T Assessment and Plan Start: 04/03/22 18:00 Freq: Status: Active Protocol: Document 04/07/22 16:00 DCW (Rec: 04/07/22 16:44 DCW [id number]) Physical Therapy Assessment Impairments Impairments Functional Activities, Functional Mobility,Pain,ROM, Soft Tissue Mobility,Tone Goals Two Impairment Limited cervical ROM secondary to soft tissue tone Mcc Goal (LTG) Pt to decrease tone in cervical musculature in order to improve cervical flexion to at least 30? and left cervical rotation to 75? 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 LTG Duration 06/03/22 One Impairment Pt does not have an appropriate HEP Short Term Goal (STG) Pt to be independent and compliant with an appropriate HEP STG Duration 05/03/22 Assessment Summary Assessment Pt felt significant improvement following STM, appeared to be motivated to continue with stretching and strengthening program at home. Physical Therapy Plan Frequency and Duration Frequency of Treatment 1-2x/week Duration of Treatment Two months Plan of Care Start Date 04/03/22 Plan of Care End Date 06/03/22 Therapeutic Interventions Therapeutic Interventions Home Exercise Program,Joint Mobilizations,Manual Therapy, Patient/Caregiver Education, Self-Care/Home Management,Soft Tissue Mobilization, Therapeutic Activities, Therapeutic Exercises Modalities Hot Packs,Ultrasound Next Visit Focus/Plan Next Note Type Treatment Note Next Visit Plan Flexibility, STM
--- NOTE | 2022-04-11 16:44 | PT.OTN ---
Current Diagnoses Pain in right shoulder (04/11/22) Pain in left shoulder (04/11/22) Stiffness of other specified joint, not elsewhere classified (04/11/22) Cervicalgia (04/11/22) Dorsalgia, unspecified (04/11/22) Physical Therapy Treatment Note PT-OP-A Visit Information Start: 04/03/22 18:00 Freq: Status: Active Protocol: Document 04/11/22 16:00 DCW (Rec: 04/11/22 16:44 DCW [id number]) Out-Patient Physical Therapy Visit Information Visit Information Visit Type Treatment Note Visit Start Time 16:00 Visit Stop Time 16:45 Total Visit Minutes 45 Visit Number 3 Number of LINKER UP Visits 0 Evaluation Information Evaluation Date 04/03/22 PT-OP-B Current Condition Start: 04/03/22 18:00 Freq: Status: Active Protocol: Document 04/03/22 16:00 DCW (Rec: 04/03/22 18:15 DCW [id number]) Current Condition History of Current Condition Onset Date Multi-year history Current Complaints Cervical stiffness, R>L History of Current Condition Pt is a 41 year old female presenting with a multi-year history of cervical stiffness and muscle tightness. She believes it may have started when her children (currently aged 11, 9, and 3) were born and she spent most of her time carrying them around in her right arm. She has done some home stretching, like cat/ camel, which helps some, as well as using her hands to perform self-sustained pressure. Notes she does not let it stop her from working or doing chores around the home. It was pretty sore yesterday after spending the day painting, notes her right arm felt pretty heavy afterward. PT-OP-C Subjective Start: 04/03/22 18:00 Freq: Status: Active Protocol: Document 04/11/22 16:00 DCW (Rec: 04/11/22 16:44 DCW [id number]) OP-PT Subjective Patient Comments Patient Comments Pt notes that her neck is a little bit better, but still noticeably worse by the end of the day. PT-OP-F Manual Assessment Start: 04/03/22 18:00 Freq: Status: Active Protocol: Document 04/03/22 16:00 DCW (Rec: 04/03/22 18:15 DCW [id number]) Manual Assessments Soft Tissue Assessment Soft Tissue Mobility Assessment Severe tone R>L with tenderness to palpation 2/4: Pain with wincing along B traps, scalenes, SCM, levator scap, and rhomboids. PT-OP-K Range of Motion Start: 04/03/22 18:00 Freq: Status: Active Protocol: Document 04/03/22 16:00 DCW (Rec: 04/03/22 18:15 DCW [id number]) Cervical Spine Range of Motion Cervical Spine Active Degrees Testing Position Sitting Flexion 15 Extension 50 Rotation Left 60 Rotation Right 75 Lateral Flexion Left 40 Lateral Flexion Right 40 ROM Limitations Soft Tissue Tightness,Muscle Tone PT-OP-L Special Tests Start: 04/03/22 18:00 Freq: Status: Active Protocol: Document 04/03/22 16:00 DCW (Rec: 04/03/22 18:15 DCW [id number]) Special Tests Cervical Spine Special Tests Traction Test Results Negative Spurling's Test Test Results Negative Slump Test Results Negative Foraminal Compression Test Results Negative PT-OP-Q Treatments Start: 04/03/22 18:00 Freq: Status: Active Protocol: Document 04/11/22 16:00 DCW (Rec: 04/11/22 16:44 DCW [id number]) Cardio Equipment Upper Body Ergometer (UBE) Duration (Minutes) 4 RPM 60 Seat Position 10 Height 3 Therapeutic Exercises Standing Exercises Shouder Extension Standing Exercise Name Extension Side bilateral Resistance Lv 3 Equipment Used T-band Rows Standing Exercise Name Rows Side bilateral Resistance Lv 3 Equipment Used T-band Manual Therapy Treatment Soft Tissue Mobilization SCM Body Location B SCM Mobilization Type Strumming,Sustained Pressure, Trigger Point Release Intensity/Depth Moderate Body Position Supine Scalenes Body Location B Scalenes Mobilization Type Strumming,Sustained Pressure, Trigger Point Release Intensity/Depth Moderate Body Position Supine Levator scap Body Location B levator Mobilization Type Strumming,Sustained Pressure, Trigger Point Release Intensity/Depth Moderate Body Position Supine Upper Trap Body Location B UT Mobilization Type Strumming,Sustained Pressure, Trigger Point Release Intensity/Depth Moderate Body Position Supine PT-OP-T Assessment and Plan Start: 04/03/22 18:00 Freq: Status: Active Protocol: Document 04/11/22 16:00 DCW (Rec: 04/11/22 16:44 DCW [id number]) Physical Therapy Assessment Assessment Summary Assessment Pt admits she has been only mildly compliant with HEP, is showing some improvement overall with functional mobility of c-spine. Right musculature still significantly higher tone than left. Physical Therapy Plan Frequency and Duration Frequency of Treatment 1-2x/week Duration of Treatment Two months Plan of Care Start Date 04/03/22 Plan of Care End Date 06/03/22 Therapeutic Interventions Therapeutic Interventions Home Exercise Program,Joint Mobilizations,Manual Therapy, Patient/Caregiver Education, Self-Care/Home Management,Soft Tissue Mobilization, Therapeutic Activities, Therapeutic Exercises Modalities Hot Packs,Ultrasound Next Visit Focus/Plan Next Note Type Treatment Note Next Visit Plan Flexibility, STM
--- NOTE | 2022-04-14 16:54 | PT.OTN ---
Current Diagnoses Pain in right shoulder (04/14/22) Pain in left shoulder (04/14/22) Stiffness of other specified joint, not elsewhere classified (04/14/22) Cervicalgia (04/14/22) Dorsalgia, unspecified (04/14/22) Physical Therapy Treatment Note PT-OP-A Visit Information Start: 04/03/22 18:00 Freq: Status: Active Protocol: Document 04/14/22 16:05 DCW (Rec: 04/14/22 16:54 DCW [id number]) Out-Patient Physical Therapy Visit Information Visit Information Visit Type Treatment Note Visit Start Time 16:05 Visit Stop Time 16:50 Total Visit Minutes 45 Visit Number 4 Number of ATTORNEY Visits 0 Evaluation Information Evaluation Date 04/03/22 PT-OP-B Current Condition Start: 04/03/22 18:00 Freq: Status: Active Protocol: Document 04/03/22 16:00 DCW (Rec: 04/03/22 18:15 DCW [id number]) Current Condition History of Current Condition Onset Date Multi-year history Current Complaints Cervical stiffness, R>L History of Current Condition Pt is a 41 year old female presenting with a multi-year history of cervical stiffness and muscle tightness. She believes it may have started when her children (currently aged 11, 9, and 3) were born and she spent most of her time carrying them around in her right arm. She has done some home stretching, like cat/ camel, which helps some, as well as using her hands to perform self-sustained pressure. Notes she does not let it stop her from working or doing chores around the home. It was pretty sore yesterday after spending the day painting, notes her right arm felt pretty heavy afterward. PT-OP-C Subjective Start: 04/03/22 18:00 Freq: Status: Active Protocol: Document 04/14/22 16:05 DCW (Rec: 04/14/22 16:54 DCW [id number]) OP-PT Subjective Patient Comments Patient Comments Pt reports she was feeling better, but it still just tightens up by the end of the day. PT-OP-F Manual Assessment Start: 04/03/22 18:00 Freq: Status: Active Protocol: Document 04/03/22 16:00 DCW (Rec: 04/03/22 18:15 DCW [id number]) Manual Assessments Soft Tissue Assessment Soft Tissue Mobility Assessment Severe tone R>L with tenderness to palpation /: Pain with wincing along B traps, scalenes, SCM, levator scap, and rhomboids. PT-OP-K Range of Motion Start: 04/03/22 18:00 Freq: Status: Active Protocol: Document 04/03/22 16:00 DCW (Rec: 04/03/22 18:15 DCW [id number]) Cervical Spine Range of Motion Cervical Spine Active Degrees Testing Position Sitting Flexion 15 Extension 50 Rotation Left 60 Rotation Right 75 Lateral Flexion Left 40 Lateral Flexion Right 40 ROM Limitations Soft Tissue Tightness,Muscle Tone PT-OP-L Special Tests Start: 04/03/22 18:00 Freq: Status: Active Protocol: Document 04/03/22 16:00 DCW (Rec: 04/03/22 18:15 DCW [id number]) Special Tests Cervical Spine Special Tests Traction Test Results Negative Spurling's Test Test Results Negative Slump Test Results Negative Foraminal Compression Test Results Negative PT-OP-Q Treatments Start: 04/03/22 18:00 Freq: Status: Active Protocol: Document 04/14/22 16:05 DCW (Rec: 04/14/22 16:54 DCW [id number]) Cardio Equipment Upper Body Ergometer (UBE) Duration (Minutes) 4 RPM 60 Seat Position 10 Height 3 Therapeutic Exercises Prone Exercises Hughstons Prone Exercise Name Prone I's, Y's, and T's Side bilateral Equipment Used Green T-ball, 3# Manual Therapy Treatment Other Other Manual Treatments Resisted left rotation MWM PT-OP-T Assessment and Plan Start: 04/03/22 18:00 Freq: Status: Active Protocol: Document 04/14/22 16:05 DCW (Rec: 04/14/22 16:54 DCW [id number]) Physical Therapy Assessment Impairments Impairments Functional Activities, Functional Mobility,Pain,ROM, Soft Tissue Mobility,Tone Goals Two Impairment Limited cervical ROM secondary to soft tissue tone Retirement Goal (LTG) Pt to decrease tone in cervical musculature in order to improve cervical flexion to at least 30? and left cervical rotation to 75? 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 LTG Duration 06/03/22 One Impairment Pt does not have an appropriate HEP Short Term Goal (STG) Pt to be independent and compliant with an appropriate HEP STG Duration 05/03/22 Assessment Summary Assessment Pt continues to feel better overall, still quite severe tone in right SCM, improving along upper trap. Physical Therapy Plan Frequency and Duration Frequency of Treatment 1-2x/week Duration of Treatment Two months Plan of Care Start Date 04/03/22 Plan of Care End Date 06/03/22 Therapeutic Interventions Therapeutic Interventions Home Exercise Program,Joint Mobilizations,Manual Therapy, Patient/Caregiver Education, Self-Care/Home Management,Soft Tissue Mobilization, Therapeutic Activities, Therapeutic Exercises Modalities Hot Packs,Ultrasound Next Visit Focus/Plan Next Note Type Treatment Note Next Visit Plan Flexibility, STM
--- NOTE | 2022-04-19 16:43 | PT.OTN ---
Current Diagnoses Pain in right shoulder (04/19/22) Pain in left shoulder (04/19/22) Stiffness of other specified joint, not elsewhere classified (04/19/22) Cervicalgia (04/19/22) Dorsalgia, unspecified (04/19/22) Physical Therapy Treatment Note PT-OP-A Visit Information Start: 04/03/22 18:00 Freq: Status: Active Protocol: Document 04/19/22 16:00 DCW (Rec: 04/19/22 16:43 DCW [id number]) Out-Patient Physical Therapy Visit Information Visit Information Visit Type Treatment Note Visit Start Time 16:00 Visit Stop Time 16:45 Total Visit Minutes 45 Visit Number 5 Number of CAR STARTER Visits 0 Evaluation Information Evaluation Date 04/03/22 PT-OP-B Current Condition Start: 04/03/22 18:00 Freq: Status: Active Protocol: Document 04/03/22 16:00 DCW (Rec: 04/03/22 18:15 DCW [id number]) Current Condition History of Current Condition Onset Date Multi-year history Current Complaints Cervical stiffness, R>L History of Current Condition Pt is a 41 year old female presenting with a multi-year history of cervical stiffness and muscle tightness. She believes it may have started when her children (currently aged 11, 9, and 3) were born and she spent most of her time carrying them around in her right arm. She has done some home stretching, like cat/ camel, which helps some, as well as using her hands to perform self-sustained pressure. Notes she does not let it stop her from working or doing chores around the home. It was pretty sore yesterday after spending the day painting, notes her right arm felt pretty heavy afterward. PT-OP-C Subjective Start: 04/03/22 18:00 Freq: Status: Active Protocol: Document 04/19/22 16:00 DCW (Rec: 04/19/22 16:43 DCW [id number]) OP-PT Subjective Patient Comments Patient Comments Pt notes she is just now starting to tighten up, as is usual for her later in the day . PT-OP-F Manual Assessment Start: 04/03/22 18:00 Freq: Status: Active Protocol: Document 04/03/22 16:00 DCW (Rec: 04/03/22 18:15 DCW [id number]) Manual Assessments Soft Tissue Assessment Soft Tissue Mobility Assessment Severe tone R>L with tenderness to palpation 2/4: Pain with wincing along B traps, scalenes, SCM, levator scap, and rhomboids. PT-OP-K Range of Motion Start: 04/03/22 18:00 Freq: Status: Active Protocol: Document 04/03/22 16:00 DCW (Rec: 04/03/22 18:15 DCW [id number]) Cervical Spine Range of Motion Cervical Spine Active Degrees Testing Position Sitting Flexion 15 Extension 50 Rotation Left 60 Rotation Right 75 Lateral Flexion Left 40 Lateral Flexion Right 40 ROM Limitations Soft Tissue Tightness,Muscle Tone PT-OP-L Special Tests Start: 04/03/22 18:00 Freq: Status: Active Protocol: Document 04/03/22 16:00 DCW (Rec: 04/03/22 18:15 DCW [id number]) Special Tests Cervical Spine Special Tests Traction Test Results Negative Spurling's Test Test Results Negative Slump Test Results Negative Foraminal Compression Test Results Negative PT-OP-Q Treatments Start: 04/03/22 18:00 Freq: Status: Active Protocol: Document 04/19/22 16:00 DCW (Rec: 04/19/22 16:43 DCW [id number]) Cardio Equipment Upper Body Ergometer (UBE) Duration (Minutes) 4 RPM 60 Seat Position 10 Height 3 Therapeutic Exercises Prone Exercises Hughstons Prone Exercise Name Prone I's, Y's, and T's Side bilateral Equipment Used Green T-ball, 3# Other Exercises Resisted side-stepping Other Exercise Name Resistes UE side-stepping Resistance Blue Manual Therapy Treatment Soft Tissue Mobilization SCM Body Location B SCM Mobilization Type Strumming,Sustained Pressure, Trigger Point Release Intensity/Depth Moderate Body Position Supine Scalenes Body Location B Scalenes Mobilization Type Strumming,Sustained Pressure, Trigger Point Release Intensity/Depth Moderate Body Position Supine Levator scap Body Location B levator Mobilization Type Strumming,Sustained Pressure, Trigger Point Release Intensity/Depth Moderate Body Position Supine Upper Trap Body Location B UT Mobilization Type Strumming,Sustained Pressure, Trigger Point Release Intensity/Depth Moderate Body Position Supine Other Other Manual Treatments Resisted left rotation MWM PT-OP-T Assessment and Plan Start: 04/03/22 18:00 Freq: Status: Active Protocol: Document 04/19/22 16:00 DCW (Rec: 04/19/22 16:43 DCW [id number]) Physical Therapy Assessment Impairments Impairments Functional Activities, Functional Mobility,Pain,ROM, Soft Tissue Mobility,Tone Goals Two Impairment Limited cervical ROM secondary to soft tissue tone Data Integration Analyst Goal (LTG) Pt to decrease tone in cervical musculature in order to improve cervical flexion to at least 30? and left cervical rotation to 75? 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 LTG Duration 06/03/22 One Impairment Pt does not have an appropriate HEP Short Term Goal (STG) Pt to be independent and compliant with an appropriate HEP STG Duration 05/03/22 Assessment Summary Assessment Doing better with some of the strengthening exercises, slightly less tone overall in right paraspinals and SCM. Physical Therapy Plan Frequency and Duration Frequency of Treatment 1-2x/week Plan of Care Start Date 04/03/22 Plan of Care End Date 06/03/22 Therapeutic Interventions Therapeutic Interventions Home Exercise Program,Joint Mobilizations,Manual Therapy, Patient/Caregiver Education, Self-Care/Home Management,Soft Tissue Mobilization, Therapeutic Activities, Therapeutic Exercises Modalities Hot Packs,Ultrasound Next Visit Focus/Plan Next Note Type Treatment Note Next Visit Plan Flexibility, STM
--- NOTE | 2022-04-21 16:47 | PT.OTN ---
Current Diagnoses Pain in right shoulder (04/21/22) Pain in left shoulder (04/21/22) Stiffness of other specified joint, not elsewhere classified (04/21/22) Cervicalgia (04/21/22) Dorsalgia, unspecified (04/21/22) Physical Therapy Treatment Note PT-OP-A Visit Information Start: 04/03/22 18:00 Freq: Status: Active Protocol: Document 04/21/22 16:00 DCW (Rec: 04/21/22 16:47 DC [id number]) Out-Patient Physical Therapy Visit Information Visit Information Visit Type Treatment Note Visit Start Time 16:00 Visit Stop Time 16:45 Total Visit Minutes 45 Visit Number 6 Number of EVENT LIGHTING SPECIALIST Visits 0 Evaluation Information Evaluation Date 04/03/22 PT-OP-B Current Condition Start: 04/03/22 18:00 Freq: Status: Active Protocol: Document 04/03/22 16:00 DCW (Rec: 04/03/22 18:15 DCW [id number]) Current Condition History of Current Condition Onset Date Multi-year history Current Complaints Cervical stiffness, R>L History of Current Condition Pt is a 41 year old female presenting with a multi-year history of cervical stiffness and muscle tightness. She believes it may have started when her children (currently aged 11, 9, and 3) were born and she spent most of her time carrying them around in her right arm. She has done some home stretching, like cat/ camel, which helps some, as well as using her hands to perform self-sustained pressure. Notes she does not let it stop her from working or doing chores around the home. It was pretty sore yesterday after spending the day painting, notes her right arm felt pretty heavy afterward. PT-OP-C Subjective Start: 04/03/22 18:00 Freq: Status: Active Protocol: Document 04/21/22 16:00 DCW (Rec: 04/21/22 16:47 DCW [id number]) OP-PT Subjective Patient Comments Patient Comments Feeling okay today, better than it was a couple of days ago, not as sore by the end of the day today, although admits that she only had a half day today, so there was some reduced stress. PT-OP-F Manual Assessment Start: 04/03/22 18:00 Freq: Status: Active Protocol: Document 04/03/22 16:00 DCW (Rec: 04/03/22 18:15 DCW [id number]) Manual Assessments Soft Tissue Assessment Soft Tissue Mobility Assessment Severe tone R>L with tenderness to palpation 2/4: Pain with wincing along B traps, scalenes, SCM, levator scap, and rhomboids. PT-OP-K Range of Motion Start: 04/03/22 18:00 Freq: Status: Active Protocol: Document 04/03/22 16:00 DCW (Rec: 04/03/22 18:15 DCW [id number]) Cervical Spine Range of Motion Cervical Spine Active Degrees Testing Position Sitting Flexion 15 Extension 50 Rotation Left 60 Rotation Right 75 Lateral Flexion Left 40 Lateral Flexion Right 40 ROM Limitations Soft Tissue Tightness,Muscle Tone PT-OP-L Special Tests Start: 04/03/22 18:00 Freq: Status: Active Protocol: Document 04/03/22 16:00 DCW (Rec: 04/03/22 18:15 DCW [id number]) Special Tests Cervical Spine Special Tests Traction Test Results Negative Spurling's Test Test Results Negative Slump Test Results Negative Foraminal Compression Test Results Negative PT-OP-Q Treatments Start: 04/03/22 18:00 Freq: Status: Active Protocol: Document 04/21/22 16:00 DCW (Rec: 04/21/22 16:47 HIW [id number]) Cardio Equipment Upper Body Ergometer (UBE) Duration (Minutes) 4 RPM 60 Seat Position 10 Height 3 Therapeutic Exercises Prone Exercises Hughstons Prone Exercise Name Prone I's, Y's, and T's Side bilateral Equipment Used Green T-ball, 4# Other Exercises Resisted side-stepping Other Exercise Name Resistes UE side-stepping Resistance Blue Manual Therapy Treatment Soft Tissue Mobilization SCM Body Location B SCM Mobilization Type Strumming,Sustained Pressure, Trigger Point Release Intensity/Depth Moderate Body Position Supine Scalenes Body Location B Scalenes Mobilization Type Strumming,Sustained Pressure, Trigger Point Release Intensity/Depth Moderate Body Position Supine Levator scap Body Location B levator Mobilization Type Strumming,Sustained Pressure, Trigger Point Release Intensity/Depth Moderate Body Position Supine Upper Trap Body Location B UT Mobilization Type Strumming,Sustained Pressure, Trigger Point Release Intensity/Depth Moderate Body Position Supine PT-OP-T Assessment and Plan Start: 04/03/22 18:00 Freq: Status: Active Protocol: Document 04/21/22 16:00 DCW (Rec: 04/21/22 16:47 DCW [id number]) Physical Therapy Assessment Impairments Impairments Functional Activities, Functional Mobility,Pain,ROM, Soft Tissue Mobility,Tone Goals Two Impairment Limited cervical ROM secondary to soft tissue tone Cue Worker Goal (LTG) Pt to decrease tone in cervical musculature in order to improve cervical flexion to at least 30? and left cervical rotation to 75? 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 LTG Duration 06/03/22 One Impairment Pt does not have an appropriate HEP Short Term Goal (STG) Pt to be independent and compliant with an appropriate HEP STG Duration 05/03/22 Assessment Summary Assessment Noticeably improved with SCM tone and no signs today of C5 rotation today. Showing good progress overall. Physical Therapy Plan Frequency and Duration Frequency of Treatment 1-2x/week Plan of Care Start Date 04/03/22 Plan of Care End Date 06/03/22 Therapeutic Interventions Therapeutic Interventions Home Exercise Program,Joint Mobilizations,Manual Therapy, Patient/Caregiver Education, Self-Care/Home Management,Soft Tissue Mobilization, Therapeutic Activities, Therapeutic Exercises Modalities Hot Packs,Ultrasound Next Visit Focus/Plan Next Note Type Treatment Note Next Visit Plan Flexibility, STM
--- NOTE | 2022-04-25 16:45 | PT.OTN ---
Current Diagnoses Pain in right shoulder (04/25/22) Pain in left shoulder (04/25/22) Stiffness of other specified joint, not elsewhere classified (04/25/22) Cervicalgia (04/25/22) Dorsalgia, unspecified (04/25/22) Physical Therapy Treatment Note PT-OP-A Visit Information Start: 04/03/22 18:00 Freq: Status: Active Protocol: Document 04/25/22 16:00 DCW (Rec: 04/25/22 16:45 DCW [id number]) Out-Patient Physical Therapy Visit Information Visit Information Visit Type Treatment Note Visit Start Time 16:00 Visit Stop Time 16:45 Total Visit Minutes 45 Visit Number 7 Number of NATIONAL [employer] ANALYST Visits 0 Evaluation Information Evaluation Date 04/03/22 PT-OP-B Current Condition Start: 04/03/22 18:00 Freq: Status: Active Protocol: Document 04/03/22 16:00 DCW (Rec: 04/03/22 18:15 DCW [id number]) Current Condition History of Current Condition Onset Date Multi-year history Current Complaints Cervical stiffness, R>L History of Current Condition Pt is a 41 year old female presenting with a multi-year history of cervical stiffness and muscle tightness. She believes it may have started when her children (currently aged 11, 9, and 3) were born and she spent most of her time carrying them around in her right arm. She has done some home stretching, like cat/ camel, which helps some, as well as using her hands to perform self-sustained pressure. Notes she does not let it stop her from working or doing chores around the home. It was pretty sore yesterday after spending the day painting, notes her right arm felt pretty heavy afterward. PT-OP-C Subjective Start: 04/03/22 18:00 Freq: Status: Active Protocol: Document 04/25/22 16:00 DCW (Rec: 04/25/22 16:45 DCW [id number]) OP-PT Subjective Patient Comments Patient Comments Pt reports she is tight and sore today. PT-OP-F Manual Assessment Start: 04/03/22 18:00 Freq: Status: Active Protocol: Document 04/03/22 16:00 DCW (Rec: 04/03/22 18:15 DCW [id number]) Manual Assessments Soft Tissue Assessment Soft Tissue Mobility Assessment Severe tone R>L with tenderness to palpation 2/4: Pain with wincing along B traps, scalenes, SCM, levator scap, and rhomboids. PT-OP-K Range of Motion Start: 04/03/22 18:00 Freq: Status: Active Protocol: Document 04/03/22 16:00 DCW (Rec: 04/03/22 18:15 DCW [id number]) Cervical Spine Range of Motion Cervical Spine Active Degrees Testing Position Sitting Flexion 15 Extension 50 Rotation Left 60 Rotation Right 75 Lateral Flexion Left 40 Lateral Flexion Right 40 ROM Limitations Soft Tissue Tightness,Muscle Tone PT-OP-L Special Tests Start: 04/03/22 18:00 Freq: Status: Active Protocol: Document 04/03/22 16:00 DCW (Rec: 04/03/22 18:15 DCW [id number]) Special Tests Cervical Spine Special Tests Traction Test Results Negative Spurling's Test Test Results Negative Slump Test Results Negative Foraminal Compression Test Results Negative PT-OP-Q Treatments Start: 04/03/22 18:00 Freq: Status: Active Protocol: Document 04/25/22 16:00 DCW (Rec: 04/25/22 16:45 DCW [id number]) Cardio Equipment Upper Body Ergometer (UBE) Duration (Minutes) 4 RPM 60 Seat Position 10 Height 3 Therapeutic Exercises Prone Exercises Hughstons Prone Exercise Name Prone I's, Y's, and T's Side bilateral Equipment Used Green T-ball, 4# Standing Exercises Body Blade Standing Exercise Name Body blade flexion Side bilateral Resistance Yellow Other Exercises Wall clock Other Exercise Name Wall clock Side bilateral Resistance Blue Resisted side-stepping Other Exercise Name Resisted UE side-stepping Resistance Blue Manual Therapy Treatment Soft Tissue Mobilization SCM Body Location B SCM Mobilization Type Strumming,Sustained Pressure, Trigger Point Release Intensity/Depth Moderate Body Position Supine Scalenes Body Location B Scalenes Mobilization Type Strumming,Sustained Pressure, Trigger Point Release Intensity/Depth Moderate Body Position Supine Levator scap Body Location B levator Mobilization Type Strumming,Sustained Pressure, Trigger Point Release Intensity/Depth Moderate Body Position Supine Upper Trap Body Location B UT Mobilization Type Strumming,Sustained Pressure, Trigger Point Release Intensity/Depth Moderate Body Position Supine PT-OP-T Assessment and Plan Start: 04/03/22 18:00 Freq: Status: Active Protocol: Document 04/25/22 16:00 DCW (Rec: 04/25/22 16:45 DCW [id number]) Physical Therapy Assessment Impairments Impairments Functional Activities, Functional Mobility,Pain,ROM, Soft Tissue Mobility,Tone Goals Two Impairment Limited cervical ROM secondary to soft tissue tone Patent Attorney Goal (LTG) Pt to decrease tone in cervical musculature in order to improve cervical flexion to at least 30? and left cervical rotation to 75? 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 LTG Duration 06/03/22 One Impairment Pt does not have an appropriate HEP Short Term Goal (STG) Pt to be independent and compliant with an appropriate HEP STG Duration 05/03/22 Assessment Summary Assessment Continues to presents with improving R SCM tone, pt does admit that shoulders and neck don't feel like they've gotten much stronger. Physical Therapy Plan Frequency and Duration Frequency of Treatment 1-2x/week Plan of Care Start Date 04/03/22 Plan of Care End Date 06/03/22 Therapeutic Interventions Therapeutic Interventions Home Exercise Program,Joint Mobilizations,Manual Therapy, Patient/Caregiver Education, Self-Care/Home Management,Soft Tissue Mobilization, Therapeutic Activities, Therapeutic Exercises Modalities Hot Packs,Ultrasound Next Visit Focus/Plan Next Note Type Treatment Note Next Visit Plan Flexibility, STM
--- NOTE | 2022-04-28 16:53 | PT.OTN ---
Current Diagnoses Pain in right shoulder (04/28/22) Pain in left shoulder (04/28/22) Stiffness of other specified joint, not elsewhere classified (04/28/22) Cervicalgia (04/28/22) Dorsalgia, unspecified (04/28/22) Physical Therapy Treatment Note PT-OP-A Visit Information Start: 04/03/22 18:00 Freq: Status: Active Protocol: Document 04/28/22 16:00 DCW (Rec: 04/28/22 16:53 DCW [id number]) Out-Patient Physical Therapy Visit Information Visit Information Visit Type Treatment Note Visit Start Time 16:00 Visit Stop Time 16:45 Total Visit Minutes 45 Visit Number 8 Number of NOVELTY TWISTER TENDER Visits 0 Evaluation Information Evaluation Date 04/03/22 PT-OP-B Current Condition Start: 04/03/22 18:00 Freq: Status: Active Protocol: Document 04/03/22 16:00 DCW (Rec: 04/03/22 18:15 DCW [id number]) Current Condition History of Current Condition Onset Date Multi-year history Current Complaints Cervical stiffness, R>L History of Current Condition Pt is a 41 year old female presenting with a multi-year history of cervical stiffness and muscle tightness. She believes it may have started when her children (currently aged 11, 9, and 3) were born and she spent most of her time carrying them around in her right arm. She has done some home stretching, like cat/ camel, which helps some, as well as using her hands to perform self-sustained pressure. Notes she does not let it stop her from working or doing chores around the home. It was pretty sore yesterday after spending the day painting, notes her right arm felt pretty heavy afterward. PT-OP-C Subjective Start: 04/03/22 18:00 Freq: Status: Active Protocol: Document 04/28/22 16:00 DCW (Rec: 04/28/22 16:53 DCW [id number]) OP-PT Subjective Patient Comments Patient Comments It's not bad today, but still not great. PT-OP-F Manual Assessment Start: 04/03/22 18:00 Freq: Status: Active Protocol: Document 04/03/22 16:00 DCW (Rec: 04/03/22 18:15 DCW [id number]) Manual Assessments Soft Tissue Assessment Soft Tissue Mobility Assessment Severe tone R>L with tenderness to palpation 2/4: Pain with wincing along B traps, scalenes, SCM, levator scap, and rhomboids. PT-OP-K Range of Motion Start: 04/03/22 18:00 Freq: Status: Active Protocol: Document 04/03/22 16:00 DCW (Rec: 04/03/22 18:15 DCW [id number]) Cervical Spine Range of Motion Cervical Spine Active Degrees Testing Position Sitting Flexion 15 Extension 50 Rotation Left 60 Rotation Right 75 Lateral Flexion Left 40 Lateral Flexion Right 40 ROM Limitations Soft Tissue Tightness,Muscle Tone PT-OP-L Special Tests Start: 04/03/22 18:00 Freq: Status: Active Protocol: Document 04/03/22 16:00 DCW (Rec: 04/03/22 18:15 DCW [id number]) Special Tests Cervical Spine Special Tests Traction Test Results Negative Spurling's Test Test Results Negative Slump Test Results Negative Foraminal Compression Test Results Negative PT-OP-Q Treatments Start: 04/03/22 18:00 Freq: Status: Active Protocol: Document 04/28/22 16:00 DCW (Rec: 04/28/22 16:53 DCW [id number]) Cardio Equipment Upper Body Ergometer (UBE) Duration (Minutes) 4 RPM 60 Seat Position 10 Height 3 Therapeutic Exercises Prone Exercises Hughstons Prone Exercise Name Prone I's, Y's, and T's Side bilateral Equipment Used Green T-ball, 4# Standing Exercises Body Blade Standing Exercise Name Body blade flexion Side bilateral Resistance Yellow Other Exercises Wall clock Other Exercise Name Wall clock Side bilateral Resistance Blue Resisted side-stepping Other Exercise Name Resisted UE side-stepping Resistance Blue Manual Therapy Treatment Soft Tissue Mobilization SCM Body Location B SCM Mobilization Type Strumming,Sustained Pressure, Trigger Point Release Intensity/Depth Moderate Body Position Supine Scalenes Body Location B Scalenes Mobilization Type Strumming,Sustained Pressure, Trigger Point Release Intensity/Depth Moderate Body Position Supine Levator scap Body Location B levator Mobilization Type Strumming,Sustained Pressure, Trigger Point Release Intensity/Depth Moderate Body Position Supine Upper Trap Body Location B UT Mobilization Type Strumming,Sustained Pressure, Trigger Point Release Intensity/Depth Moderate Body Position Supine PT-OP-T Assessment and Plan Start: 04/03/22 18:00 Freq: Status: Active Protocol: Document 04/28/22 16:00 DCW (Rec: 04/28/22 16:53 DCW [id number]) Physical Therapy Assessment Impairments Impairments Functional Activities, Functional Mobility,Pain,ROM, Soft Tissue Mobility,Tone Goals Two Impairment Limited cervical ROM secondary to soft tissue tone Custodial Goal (LTG) Pt to decrease tone in cervical musculature in order to improve cervical flexion to at least 30? and left cervical rotation to 75? 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 LTG Duration 06/03/22 One Impairment Pt does not have an appropriate HEP Short Term Goal (STG) Pt to be independent and compliant with an appropriate HEP STG Duration 05/03/22 Assessment Summary Assessment Pt always responds well to PT, tolerates exercise/ strengthening well, and loosens up with STM, however returns to prior dysfunction after one day returned to work . Physical Therapy Plan Frequency and Duration Frequency of Treatment 1-2x/week Plan of Care Start Date 04/03/22 Plan of Care End Date 06/03/22 Therapeutic Interventions Therapeutic Interventions Home Exercise Program,Joint Mobilizations,Manual Therapy, Patient/Caregiver Education, Self-Care/Home Management,Soft Tissue Mobilization, Therapeutic Activities, Therapeutic Exercises Modalities Hot Packs,Ultrasound Next Visit Focus/Plan Next Note Type Treatment Note Next Visit Plan Flexibility, STM
--- NOTE | 2022-05-04 16:46 | PT.OTN ---
Current Diagnoses Pain in right shoulder (05/04/22) Pain in left shoulder (05/04/22) Stiffness of other specified joint, not elsewhere classified (05/04/22) Cervicalgia (05/04/22) Dorsalgia, unspecified (05/04/22) Physical Therapy Treatment Note PT-OP-A Visit Information Start: 04/03/22 18:00 Freq: Status: Active Protocol: Document 05/04/22 16:00 DCW (Rec: 05/04/22 16:46 DCW [id number]) Out-Patient Physical Therapy Visit Information Visit Information Visit Type Treatment Note Visit Start Time 16:00 Visit Stop Time 16:45 Total Visit Minutes 45 Visit Number 9 Number of WEB SEARCH EVALUATOR Visits 0 Evaluation Information Evaluation Date 04/03/22 PT-OP-B Current Condition Start: 04/03/22 18:00 Freq: Status: Active Protocol: Document 04/03/22 16:00 DCW (Rec: 04/03/22 18:15 DCW [id number]) Current Condition History of Current Condition Onset Date Multi-year history Current Complaints Cervical stiffness, R>L History of Current Condition Pt is a 41 year old female presenting with a multi-year history of cervical stiffness and muscle tightness. She believes it may have started when her children (currently aged 11, 9, and 3) were born and she spent most of her time carrying them around in her right arm. She has done some home stretching, like cat/ camel, which helps some, as well as using her hands to perform self-sustained pressure. Notes she does not let it stop her from working or doing chores around the home. It was pretty sore yesterday after spending the day painting, notes her right arm felt pretty heavy afterward. PT-OP-C Subjective Start: 04/03/22 18:00 Freq: Status: Active Protocol: Document 05/04/22 16:00 DCW (Rec: 05/04/22 16:46 DCW [id number]) OP-PT Subjective Patient Comments Patient Comments Pt admits she had a rough day, is feeling pretty tight everywhere. PT-OP-F Manual Assessment Start: 04/03/22 18:00 Freq: Status: Active Protocol: Document 04/03/22 16:00 DCW (Rec: 04/03/22 18:15 DCW [id number]) Manual Assessments Soft Tissue Assessment Soft Tissue Mobility Assessment Severe tone R>L with tenderness to palpation 2/4: Pain with wincing along B traps, scalenes, SCM, levator scap, and rhomboids. PT-OP-K Range of Motion Start: 04/03/22 18:00 Freq: Status: Active Protocol: Document 04/03/22 16:00 DCW (Rec: 04/03/22 18:15 DCW [id number]) Cervical Spine Range of Motion Cervical Spine Active Degrees Testing Position Sitting Flexion 15 Extension 50 Rotation Left 60 Rotation Right 75 Lateral Flexion Left 40 Lateral Flexion Right 40 ROM Limitations Soft Tissue Tightness,Muscle Tone PT-OP-L Special Tests Start: 04/03/22 18:00 Freq: Status: Active Protocol: Document 04/03/22 16:00 DCW (Rec: 04/03/22 18:15 DCW [id number]) Special Tests Cervical Spine Special Tests Traction Test Results Negative Spurling's Test Test Results Negative Slump Test Results Negative Foraminal Compression Test Results Negative PT-OP-Q Treatments Start: 04/03/22 18:00 Freq: Status: Active Protocol: Document 05/04/22 16:00 DCW (Rec: 05/04/22 16:46 DCW [id number]) Cardio Equipment Upper Body Ergometer (UBE) Duration (Minutes) 4 RPM 60 Seat Position 10 Height 3 Therapeutic Exercises Supine Exercises Supine Flys Supine Exercise Name Horizontal Adduction Side bilateral Resistance 3# Serratus punch Supine Exercise Name Serratus punch Side bilateral Resistance 3# Standing Exercises Body Blade Standing Exercise Name Body blade flexion Side bilateral Resistance Yellow Manual Therapy Treatment Soft Tissue Mobilization SCM Body Location B SCM Mobilization Type Strumming,Sustained Pressure, Trigger Point Release Intensity/Depth Moderate Body Position Supine Scalenes Body Location B Scalenes Mobilization Type Strumming,Sustained Pressure, Trigger Point Release Intensity/Depth Moderate Body Position Supine Levator scap Body Location B levator Mobilization Type Strumming,Sustained Pressure, Trigger Point Release Intensity/Depth Moderate Body Position Supine Upper Trap Body Location B UT Mobilization Type Strumming,Sustained Pressure, Trigger Point Release Intensity/Depth Moderate Body Position Supine PT-OP-T Assessment and Plan Start: 04/03/22 18:00 Freq: Status: Active Protocol: Document 05/04/22 16:00 DCW (Rec: 05/04/22 16:46 DCW [id number]) Physical Therapy Assessment Assessment Summary Assessment Pt continues to exhibit momentary improvement for a period of time following PT, however returns to mod-severe tightness and tone after a day of work. Physical Therapy Plan Frequency and Duration Frequency of Treatment 1-2x/week Plan of Care Start Date 04/03/22 Plan of Care End Date 06/03/22 Therapeutic Interventions Therapeutic Interventions Home Exercise Program,Joint Mobilizations,Manual Therapy, Patient/Caregiver Education, Self-Care/Home Management,Soft Tissue Mobilization, Therapeutic Activities, Therapeutic Exercises Modalities Hot Packs,Ultrasound Next Visit Focus/Plan Next Note Type Treatment Note Next Visit Plan Flexibility, STM
--- NOTE | 2022-05-08 16:02 | PT.OTN ---
Current Diagnoses Pain in right shoulder (05/08/22) Pain in left shoulder (05/08/22) Stiffness of other specified joint, not elsewhere classified (05/08/22) Cervicalgia (05/08/22) Dorsalgia, unspecified (05/08/22) Physical Therapy Treatment Note PT-OP-A Visit Information Start: 04/03/22 18:00 Freq: Status: Active Protocol: Document 05/08/22 15:16 DCW (Rec: 05/08/22 16:02 DCW [id number]) Out-Patient Physical Therapy Visit Information Visit Information Visit Type Treatment Note Visit Start Time 15:16 Visit Stop Time 16:00 Total Visit Minutes 44 Visit Number 10 Number of DAY CAMP UNIT LEADER Visits 0 Evaluation Information Evaluation Date 04/03/22 PT-OP-B Current Condition Start: 04/03/22 18:00 Freq: Status: Active Protocol: Document 04/03/22 16:00 DCW (Rec: 04/03/22 18:15 DCW [id number]) Current Condition History of Current Condition Onset Date Multi-year history Current Complaints Cervical stiffness, R>L History of Current Condition Pt is a 41 year old female presenting with a multi-year history of cervical stiffness and muscle tightness. She believes it may have started when her children (currently aged 11, 9, and 3) were born and she spent most of her time carrying them around in her right arm. She has done some home stretching, like cat/ camel, which helps some, as well as using her hands to perform self-sustained pressure. Notes she does not let it stop her from working or doing chores around the home. It was pretty sore yesterday after spending the day painting, notes her right arm felt pretty heavy afterward. PT-OP-C Subjective Start: 04/03/22 18:00 Freq: Status: Active Protocol: Document 05/08/22 15:16 DCW (Rec: 05/08/22 16:02 DCW [id number]) OP-PT Subjective Patient Comments Patient Comments Pt feeling a little bit tight today. PT-OP-F Manual Assessment Start: 04/03/22 18:00 Freq: Status: Active Protocol: Document 04/03/22 16:00 DCW (Rec: 04/03/22 18:15 DCW [id number]) Manual Assessments Soft Tissue Assessment Soft Tissue Mobility Assessment Severe tone R>L with tenderness to palpation 2/4: Pain with wincing along B traps, scalenes, SCM, levator scap, and rhomboids. PT-OP-K Range of Motion Start: 04/03/22 18:00 Freq: Status: Active Protocol: Document 04/03/22 16:00 DCW (Rec: 04/03/22 18:15 DCW [id number]) Cervical Spine Range of Motion Cervical Spine Active Degrees Testing Position Sitting Flexion 15 Extension 50 Rotation Left 60 Rotation Right 75 Lateral Flexion Left 40 Lateral Flexion Right 40 ROM Limitations Soft Tissue Tightness,Muscle Tone PT-OP-L Special Tests Start: 04/03/22 18:00 Freq: Status: Active Protocol: Document 04/03/22 16:00 DCW (Rec: 04/03/22 18:15 DCW [id number]) Special Tests Cervical Spine Special Tests Traction Test Results Negative Spurling's Test Test Results Negative Slump Test Results Negative Foraminal Compression Test Results Negative PT-OP-Q Treatments Start: 04/03/22 18:00 Freq: Status: Active Protocol: Document 05/08/22 15:16 DCW (Rec: 05/08/22 16:02 DCW [id number]) Cardio Equipment Upper Body Ergometer (UBE) Duration (Minutes) 4 RPM 60 Seat Position 10 Height 3 Therapeutic Exercises Supine Exercises Supine Flys Supine Exercise Name Horizontal Adduction Side bilateral Resistance 3# Serratus punch Supine Exercise Name Serratus punch Side bilateral Resistance 3# Standing Exercises Body Blade Standing Exercise Name Body blade flexion Side bilateral Resistance Yellow Other Exercises Resisted side-stepping Other Exercise Name Resisted UE side-stepping Resistance Blue Manual Therapy Treatment Soft Tissue Mobilization SCM Body Location B SCM Mobilization Type Strumming,Sustained Pressure, Trigger Point Release Intensity/Depth Moderate Body Position Supine Scalenes Body Location B Scalenes Mobilization Type Strumming,Sustained Pressure, Trigger Point Release Intensity/Depth Moderate Body Position Supine Levator scap Body Location B levator Mobilization Type Strumming,Sustained Pressure, Trigger Point Release Intensity/Depth Moderate Body Position Supine Upper Trap Body Location B UT Mobilization Type Strumming,Sustained Pressure, Trigger Point Release Intensity/Depth Moderate Body Position Supine PT-OP-T Assessment and Plan Start: 04/03/22 18:00 Freq: Status: Active Protocol: Document 05/08/22 15:16 DCW (Rec: 05/08/22 16:02 DCW [id number]) Physical Therapy Assessment Impairments Impairments Functional Activities, Functional Mobility,Pain,ROM, Soft Tissue Mobility,Tone Goals Two Impairment Limited cervical ROM secondary to soft tissue tone Hospice Fellow Goal (LTG) Pt to decrease tone in cervical musculature in order to improve cervical flexion to at least 30? and left cervical rotation to 75? 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 LTG Duration 06/03/22 One Impairment Pt does not have an appropriate HEP Short Term Goal (STG) Pt to be independent and compliant with an appropriate HEP STG Duration 05/03/22 Assessment Summary Assessment R SCM significantly lower tone today compared to previous visits, pt showing some improvement with maintaining positioning tone following PT session. Physical Therapy Plan Frequency and Duration Frequency of Treatment 1-2x/week Plan of Care Start Date 04/03/22 Plan of Care End Date 06/03/22 Therapeutic Interventions Therapeutic Interventions Home Exercise Program,Joint Mobilizations,Manual Therapy, Patient/Caregiver Education, Self-Care/Home Management,Soft Tissue Mobilization, Therapeutic Activities, Therapeutic Exercises Modalities Hot Packs,Ultrasound Next Visit Focus/Plan Next Note Type Treatment Note Next Visit Plan Flexibility, STM
--- NOTE | 2022-05-11 16:00 | PT.OTN ---
Current Diagnoses Pain in right shoulder (05/11/22) Pain in left shoulder (05/11/22) Stiffness of other specified joint, not elsewhere classified (05/11/22) Cervicalgia (05/11/22) Dorsalgia, unspecified (05/11/22) Physical Therapy Treatment Note PT-OP-A Visit Information Start: 04/03/22 18:00 Freq: Status: Active Protocol: Document 05/11/22 15:15 DCW (Rec: 05/11/22 16:00 DCW [id number]) Out-Patient Physical Therapy Visit Information Visit Information Visit Type Treatment Note Visit Start Time 15:15 Visit Stop Time 16:00 Total Visit Minutes 45 Visit Number 11 Number of LAB MANAGER Visits 0 Evaluation Information Evaluation Date 04/03/22 PT-OP-B Current Condition Start: 04/03/22 18:00 Freq: Status: Active Protocol: Document 04/03/22 16:00 DCW (Rec: 04/03/22 18:15 DCW [id number]) Current Condition History of Current Condition Onset Date Multi-year history Current Complaints Cervical stiffness, R>L History of Current Condition Pt is a 41 year old female presenting with a multi-year history of cervical stiffness and muscle tightness. She believes it may have started when her children (currently aged 11, 9, and 3) were born and she spent most of her time carrying them around in her right arm. She has done some home stretching, like cat/ camel, which helps some, as well as using her hands to perform self-sustained pressure. Notes she does not let it stop her from working or doing chores around the home. It was pretty sore yesterday after spending the day painting, notes her right arm felt pretty heavy afterward. PT-OP-C Subjective Start: 04/03/22 18:00 Freq: Status: Active Protocol: Document 05/11/22 15:15 DCW (Rec: 05/11/22 16:00 DCW [id number]) OP-PT Subjective Patient Comments Patient Comments It feels better in the morning time. PT-OP-F Manual Assessment Start: 04/03/22 18:00 Freq: Status: Active Protocol: Document 04/03/22 16:00 DCW (Rec: 04/03/22 18:15 DCW [id number]) Manual Assessments Soft Tissue Assessment Soft Tissue Mobility Assessment Severe tone R>L with tenderness to palpation 2/4: Pain with wincing along B traps, scalenes, SCM, levator scap, and rhomboids. PT-OP-K Range of Motion Start: 04/03/22 18:00 Freq: Status: Active Protocol: Document 04/03/22 16:00 DCW (Rec: 04/03/22 18:15 DCW [id number]) Cervical Spine Range of Motion Cervical Spine Active Degrees Testing Position Sitting Flexion 15 Extension 50 Rotation Left 60 Rotation Right 75 Lateral Flexion Left 40 Lateral Flexion Right 40 ROM Limitations Soft Tissue Tightness,Muscle Tone PT-OP-L Special Tests Start: 04/03/22 18:00 Freq: Status: Active Protocol: Document 04/03/22 16:00 DCW (Rec: 04/03/22 18:15 DCW [id number]) Special Tests Cervical Spine Special Tests Traction Test Results Negative Spurling's Test Test Results Negative Slump Test Results Negative Foraminal Compression Test Results Negative PT-OP-Q Treatments Start: 04/03/22 18:00 Freq: Status: Active Protocol: Document 05/11/22 15:15 DCW (Rec: 05/11/22 16:00 DCW [id number]) Therapeutic Exercises Prone Exercises Hughstons Prone Exercise Name Prone I's, Y's, and T's Side bilateral Equipment Used Green T-ball, 4# Standing Exercises Body Blade Standing Exercise Name Body blade flexion Side bilateral Resistance Yellow Other Exercises Resisted side-stepping Other Exercise Name Resisted UE side-stepping Resistance Blue Manual Therapy Treatment Soft Tissue Mobilization SCM Body Location B SCM Mobilization Type Strumming,Sustained Pressure, Trigger Point Release Intensity/Depth Moderate Body Position Supine Scalenes Body Location B Scalenes Mobilization Type Strumming,Sustained Pressure, Trigger Point Release Intensity/Depth Moderate Body Position Supine Levator scap Body Location B levator Mobilization Type Strumming,Sustained Pressure, Trigger Point Release Intensity/Depth Moderate Body Position Supine Upper Trap Body Location B UT Mobilization Type Strumming,Sustained Pressure, Trigger Point Release Intensity/Depth Moderate Body Position Supine PT-OP-T Assessment and Plan Start: 04/03/22 18:00 Freq: Status: Active Protocol: Document 05/11/22 15:15 DCW (Rec: 05/11/22 16:00 DCW [id number]) Physical Therapy Assessment Impairments Impairments Functional Activities, Functional Mobility,Pain,ROM, Soft Tissue Mobility,Tone Goals Two Impairment Limited cervical ROM secondary to soft tissue tone Carpenters Supervisor Goal (LTG) Pt to decrease tone in cervical musculature in order to improve cervical flexion to at least 30? and left cervical rotation to 75? 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 LTG Duration 06/03/22 One Impairment Pt does not have an appropriate HEP Short Term Goal (STG) Pt to be independent and compliant with an appropriate HEP STG Duration 05/03/22 Assessment Summary Assessment Pt doing slightly better overall with TherEx during her session, less tenderness to palpation during STM. Does note some new pain in right common extensor tendon, does not remember performing any repetitive activities that could have irritated the area. Physical Therapy Plan Frequency and Duration Frequency of Treatment 1-2x/week Plan of Care Start Date 04/03/22 Plan of Care End Date 06/03/22 Therapeutic Interventions Therapeutic Interventions Home Exercise Program,Joint Mobilizations,Manual Therapy, Patient/Caregiver Education, Self-Care/Home Management,Soft Tissue Mobilization, Therapeutic Activities, Therapeutic Exercises Modalities Hot Packs,Ultrasound Next Visit Focus/Plan Next Note Type Treatment Note Next Visit Plan Flexibility, STM
--- NOTE | 2022-05-18 16:00 | PT.OTN ---
Current Diagnoses Pain in right shoulder (05/18/22) Pain in left shoulder (05/18/22) Stiffness of other specified joint, not elsewhere classified (05/18/22) Cervicalgia (05/18/22) Dorsalgia, unspecified (05/18/22) Physical Therapy Treatment Note PT-OP-A Visit Information Start: 04/03/22 18:00 Freq: Status: Active Protocol: Document 05/18/22 15:15 DCW (Rec: 05/18/22 16:00 DCW [id number]) Out-Patient Physical Therapy Visit Information Visit Information Visit Type Treatment Note Visit Start Time 15:15 Visit Stop Time 16:00 Total Visit Minutes 45 Visit Number 12 Number of SALES [employer] Visits 0 Evaluation Information Evaluation Date 04/03/22 PT-OP-B Current Condition Start: 04/03/22 18:00 Freq: Status: Active Protocol: Document 04/03/22 16:00 DCW (Rec: 04/03/22 18:15 DCW [id number]) Current Condition History of Current Condition Onset Date Multi-year history Current Complaints Cervical stiffness, R>L History of Current Condition Pt is a 41 year old female presenting with a multi-year history of cervical stiffness and muscle tightness. She believes it may have started when her children (currently aged 11, 9, and 3) were born and she spent most of her time carrying them around in her right arm. She has done some home stretching, like cat/ camel, which helps some, as well as using her hands to perform self-sustained pressure. Notes she does not let it stop her from working or doing chores around the home. It was pretty sore yesterday after spending the day painting, notes her right arm felt pretty heavy afterward. PT-OP-C Subjective Start: 04/03/22 18:00 Freq: Status: Active Protocol: Document 05/18/22 15:15 DCW (Rec: 05/18/22 16:00 DCW [id number]) OP-PT Subjective Patient Comments Patient Comments Pt reports she has been having increased pain down her right arm, points specifically at common extensor tendon insertion PT-OP-F Manual Assessment Start: 04/03/22 18:00 Freq: Status: Active Protocol: Document 04/03/22 16:00 DCW (Rec: 04/03/22 18:15 DCW [id number]) Manual Assessments Soft Tissue Assessment Soft Tissue Mobility Assessment Severe tone R>L with tenderness to palpation 2/4: Pain with wincing along B traps, scalenes, SCM, levator scap, and rhomboids. PT-OP-K Range of Motion Start: 04/03/22 18:00 Freq: Status: Active Protocol: Document 04/03/22 16:00 DCW (Rec: 04/03/22 18:15 DCW [id number]) Cervical Spine Range of Motion Cervical Spine Active Degrees Testing Position Sitting Flexion 15 Extension 50 Rotation Left 60 Rotation Right 75 Lateral Flexion Left 40 Lateral Flexion Right 40 ROM Limitations Soft Tissue Tightness,Muscle Tone PT-OP-L Special Tests Start: 04/03/22 18:00 Freq: Status: Active Protocol: Document 04/03/22 16:00 DCW (Rec: 04/03/22 18:15 DCW [id number]) Special Tests Cervical Spine Special Tests Traction Test Results Negative Spurling's Test Test Results Negative Slump Test Results Negative Foraminal Compression Test Results Negative PT-OP-Q Treatments Start: 04/03/22 18:00 Freq: Status: Active Protocol: Document 05/18/22 15:15 DCW (Rec: 05/18/22 16:00 DCW [id number]) Cardio Equipment Upper Body Ergometer (UBE) Duration (Minutes) 4 RPM 60 Seat Position 10 Height 3 Therapeutic Exercises Standing Exercises Body Blade Standing Exercise Name Body blade flexion Side bilateral Resistance Yellow Other Exercises Resisted side-stepping Other Exercise Name Resisted UE side-stepping Resistance Blue Manual Therapy Treatment Soft Tissue Mobilization Common Extensor Body Location R Common Extensor Tendon Mobilization Type Cross-Friction Intensity/Depth Moderate SCM Body Location B SCM Mobilization Type Strumming,Sustained Pressure, Trigger Point Release Intensity/Depth Moderate Body Position Supine Scalenes Body Location B Scalenes Mobilization Type Strumming,Sustained Pressure, Trigger Point Release Intensity/Depth Moderate Body Position Supine Levator scap Body Location B levator Mobilization Type Strumming,Sustained Pressure, Trigger Point Release Intensity/Depth Moderate Body Position Supine Upper Trap Body Location B UT Mobilization Type Strumming,Sustained Pressure, Trigger Point Release Intensity/Depth Moderate Body Position Supine PT-OP-T Assessment and Plan Start: 04/03/22 18:00 Freq: Status: Active Protocol: Document 05/18/22 15:15 DCW (Rec: 05/18/22 16:00 DCW [id number]) Physical Therapy Assessment Impairments Impairments Functional Activities, Functional Mobility,Pain,ROM, Soft Tissue Mobility,Tone Goals Two Impairment Limited cervical ROM secondary to soft tissue tone Toe Stripper Goal (LTG) Pt to decrease tone in cervical musculature in order to improve cervical flexion to at least 30? and left cervical rotation to 75? 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 LTG Duration 06/03/22 One Impairment Pt does not have an appropriate HEP Short Term Goal (STG) Pt to be independent and compliant with an appropriate HEP STG Duration 05/03/22 Assessment Summary Assessment Pt starting to be bothered by the fact that she seems to be getting worse, if not in her neck/shoulder, at least with along her lateral epicondyle and forearm. May return to PCP to determine next step. Physical Therapy Plan Frequency and Duration Frequency of Treatment 1-2x/week Plan of Care Start Date 04/03/22 Plan of Care End Date 06/03/22 Therapeutic Interventions Therapeutic Interventions Home Exercise Program,Joint Mobilizations,Manual Therapy, Patient/Caregiver Education, Self-Care/Home Management,Soft Tissue Mobilization, Therapeutic Activities, Therapeutic Exercises Modalities Hot Packs,Ultrasound Next Visit Focus/Plan Next Note Type Treatment Note Next Visit Plan Flexibility, STM
--- NOTE | 2022-09-07 14:31 | PT.OPDS ---
Current Diagnoses Pain in right shoulder (05/18/22) Pain in left shoulder (05/18/22) Stiffness of other specified joint, not elsewhere classified (05/18/22) Cervicalgia (05/18/22) Dorsalgia, unspecified (05/18/22) Visit Care Team Role Provider Type Dorian Jurado MD Attending Provider Physician Family Provider Primary Care Provider Referring Provider Specialty: Family Practice Address: [address] [place] [address], [facility] Email: [email or web address] Visit Number Visit Number 12 Discharge Summary PT-OP-B Current Condition Start: 04/03/22 18:00 Freq: Status: Active Protocol: Document 04/03/22 16:00 DCW (Rec: 04/03/22 18:15 DCW [id number]) Current Condition History of Current Condition Onset Date Multi-year history Current Complaints Cervical stiffness, R>L History of Current Condition Pt is a 41 year old female presenting with a multi-year history of cervical stiffness and muscle tightness. She believes it may have started when her children (currently aged 11, 9, and 3) were born and she spent most of her time carrying them around in her right arm. She has done some home stretching, like cat/ camel, which helps some, as well as using her hands to perform self-sustained pressure. Notes she does not let it stop her from working or doing chores around the home. It was pretty sore yesterday after spending the day painting, notes her right arm felt pretty heavy afterward. PT-OP-C Subjective Start: 04/03/22 18:00 Freq: Status: Active Protocol: Document 05/18/22 15:15 DCW (Rec: 05/18/22 16:00 DCW [id number]) OP-PT Subjective Patient Comments Patient Comments Pt reports she has been having increased pain down her right arm, points specifically at common extensor tendon insertion PT-OP-F Manual Assessment Start: 04/03/22 18:00 Freq: Status: Active Protocol: Document 04/03/22 16:00 DCW (Rec: 04/03/22 18:15 DCW [id number]) Manual Assessments Soft Tissue Assessment Soft Tissue Mobility Assessment Severe tone R>L with tenderness to palpation 2/4: Pain with wincing along B traps, scalenes, SCM, levator scap, and rhomboids. PT-OP-K Range of Motion Start: 04/03/22 18:00 Freq: Status: Active Protocol: Document 04/03/22 16:00 DCW (Rec: 04/03/22 18:15 DCW [id number]) Cervical Spine Range of Motion Cervical Spine Active Degrees Testing Position Sitting Flexion 15 Extension 50 Rotation Left 60 Rotation Right 75 Lateral Flexion Left 40 Lateral Flexion Right 40 ROM Limitations Soft Tissue Tightness,Muscle Tone PT-OP-L Special Tests Start: 04/03/22 18:00 Freq: Status: Active Protocol: Document 04/03/22 16:00 DCW (Rec: 04/03/22 18:15 DCW [id number]) Special Tests Cervical Spine Special Tests Traction Test Results Negative Spurling's Test Test Results Negative Slump Test Results Negative Foraminal Compression Test Results Negative PT-OP-T Assessment and Plan Start: 04/03/22 18:00 Freq: Status: Active Protocol: Document 09/07/22 14:30 DCW (Rec: 09/07/22 14:31 DCW [id number]) Physical Therapy Assessment Assessment Summary Assessment Pt requesting discharge due to issues with insurance coverage. Physical Therapy Plan Discharge Physical Therapy Discharge Reasons Patient Request
== END 2022-09-08 10:25 | disposition home or self-care (01) ==
LOC: PHYS 15:15
PROVIDERS: Family Provider Family Medicine; PCP Family Medicine; Referring Provider Family Medicine; Visit Provider Family Medicine
DX: M54.2 Cervicalgia (principal); M54.9 Dorsalgia, unspecified; M25.511 Pain in right shoulder; M25.512 Pain in left shoulder; M25.69 Stiffness of other specified joint, not elsewhere classified
CPT/HCPCS: 97110; 97140; 97161

== ENCOUNTER → 2022-11-09 15:00 | Outpatient (CLI) | payer OTHER, SELFPAY ==
--- NOTE | 2022-11-09 | DI.MG.S_ITS ---
BILATERAL DIGITAL SCREENING MAMMOGRAM 3D/2D WITH CAD: 11/09/2022 CLINICAL: Routine screening. Family history of breast cancer. Comparison is made to exam dated: 09/17/2021 mammogram - [facility]. Both breasts are heterogeneously dense, which may obscure small masses (category c / 51-75% glandular tissue). Current study was also evaluated with a Computer Aided Detection (CAD) system. No significant masses, calcifications, or other findings are seen in either breast. There has been no significant interval change. IMPRESSION: NEGATIVE There is no mammographic evidence of malignancy. A 1 year screening mammogram is recommended. Based on the Tyrer Cuzick model (a risk assessment model) the patient's lifetime risk is 13.7% and her 10 year risk is 1.9%. According to the ACR, ACS, and NCCN guidelines, an annual breast MRI exam along with mammogram is recommended if the patient's lifetime risk is 20% or greater. This exam was interpreted at Station ID: [id number]. NOTE: For mammograms, a report in lay terms will be sent to the patient. Approximately 15% of breast malignancies will not be visualized mammographically. In the management of a palpable breast mass, a negative mammogram must not discourage biopsy of a clinically suspicious lesion. Electronically Signed By: Samia camejo/juan miguel:11/10/2022 07:55:42 letter sent: Normal Exam ACR BI-RADS Category 1: Negative 3341F
== END ==
PROVIDERS: Family Provider Family Medicine; PCP Family Medicine; Referring Provider Family Medicine; Visit Provider Family Medicine
DX: Z12.31 Encounter for screening mammogram for malignant neoplasm of breast (principal); Z80.3 Family history of malignant neoplasm of breast
CPT/HCPCS: 77063; 77067

== ENCOUNTER → 2023-03-05 08:59 | Outpatient (CLI) | payer OTHER, SELFPAY ==
[2023-03-05 10:04] LABS: Add Manual Diff / Slide Review NO; Basophils Absolute Auto 100 /uL (0-100); Basophils Percent Auto 1.4 % (0-2); Eosinophils Absolute Auto 300 /uL (0-450); Eosinophils Percent Auto 6.1 % (2-4); Hematocrit 38.8 % (36-46); Hemoglobin 13.4 g/dL (12.0-16.0); Lymphocytes Absolute Auto 2000 /uL (1100-4500); Lymphocytes Percent Auto 38.6 % (25-40); Mean Corpuscular HGB Conc 34.6 % (30-36); Mean Corpuscular Hemoglobin 31.2 PG (26-34); Mean Corpuscular Volume 90.2 fL (80-100); Monocytes Absolute Auto 600 /uL (0-900); Monocytes Percent Auto 12.3 % (3-14); Neutrophils Absolute Auto 2100 /uL (1500-7000); Neutrophils Percent Auto 41.6 % (50-75); Platelet Count 264 X10^3/uL (150-400); Red Blood Cell Count 4.31 X10^6/uL (4.0-5.2); Red Cell Distribution Width 12.7 % (11.6-14.8); White Blood Cell Count 5.2 X10^3/uL (4.5-11.0)
[2023-03-05 10:13] LABS: Alanine Aminotransferase 14 IU/L (<35); Albumin 4.2 g/dL (3.5-5.0); Albumin Globulin Ratio 1.4 (1.0-2.8); Alkaline Phosphatase 44 U/L (38-126); Aspartate Aminotransferase 23 IU/L (14-36); BUN Creatinine Ratio 15.2 (6-22); Bilirubin Total 0.5 mg/dL (0.2-1.3); Blood Urea Nitrogen 10 mg/dL (7-17); Calcium 8.8 mg/dL (8.4-10.2); Carbon Dioxide 28 mmol/L (22-32); Chloride 103 mmol/L (98-107); Cholesterol 220 mg/dL (140-199); Estimated Glomerular Filt Rate > 60 mL/min (>60); Globulin 3.1 g/dL (1.7-4.1); Glucose 94 mg/dL (70-100); HDL Cholesterol 46 mg/dL (40-60); HEMOLYSIS < 15 (0-50); LDL Cholesterol Calculated 155 mg/dL (<100); Potassium 3.6 mmol/L (3.4-5.1); Sodium 137 mmol/L (137-145); Total Protein 7.3 g/dL (6.3-8.2); Triglycerides 93 mg/dL (35-150)
[2023-03-05 10:52] LABS: TSH w/ Reflex to FT4 1.17 uIU/mL (0.47-4.68)
== END ==
PROVIDERS: Family Provider Family Medicine; PCP Family Medicine; Referring Provider Family Medicine; Visit Provider Family Medicine
DX: Z00.00 Encounter for general adult medical examination without abnormal findings (principal); E78.5 Hyperlipidemia, unspecified; E89.0 Postprocedural hypothyroidism
CPT/HCPCS: 36415; 80053; 80061; 84443; 85025

== ENCOUNTER → 2023-12-04 15:01 | Outpatient (CLI) | payer OTHER, SELFPAY ==
--- NOTE | 2023-12-04 15:02 | DI.MG.S_ITS ---
BILATERAL DIGITAL SCREENING MAMMOGRAM 3D/2D WITH CAD: 12/04/2023 CLINICAL: Routine screening. Family history of breast cancer. Comparison is made to exams dated: 11/09/2022 mammogram and 09/17/2021 mammogram - [facility]. Both breasts are heterogeneously dense, which may obscure small masses (category c / 51-75% glandular tissue). Current study was also evaluated with a Computer Aided Detection (CAD) system. No significant masses, calcifications, or other findings are seen in either breast. There has been no significant interval change. IMPRESSION: NEGATIVE There is no mammographic evidence of malignancy. A 1 year screening mammogram is recommended. Based on the Tyrer Cuzick model (a risk assessment model) the patient's lifetime risk is 13.7% and her 10 year risk is 2.0%. According to the ACR, ACS, and NCCN guidelines, an annual breast MRI exam along with mammogram is recommended if the patient's lifetime risk is 20% or greater. This exam was interpreted at Station ID: [id number]. NOTE: For mammograms, a report in lay terms will be sent to the patient. Approximately 15% of breast malignancies will not be visualized mammographically. In the management of a palpable breast mass, a negative mammogram must not discourage biopsy of a clinically suspicious lesion. Electronically Signed By: Bertha Katz M.D., Ph.D. stephen/juan miguel:12/05/2023 13:48:32 letter sent: Normal Exam ACR BI-RADS Category 1: Negative 3341F
== END ==
LOC: MAMMO 15:01
PROVIDERS: Family Provider Family Medicine; PCP Family Medicine; Referring Provider Family Medicine; Visit Provider Family Medicine
DX: Z12.31 Encounter for screening mammogram for malignant neoplasm of breast (principal); Z80.3 Family history of malignant neoplasm of breast; R92.333 Mammographic heterogeneous density, bilateral breasts
CPT/HCPCS: 77063; 77067

== ENCOUNTER → 2024-04-23 07:11 | Outpatient (CLI) | payer OTHER, SELFPAY ==
[2024-04-23 08:02] LABS: Add Manual Diff / Slide Review NO; Basophils Absolute Auto 100 /uL (0-100); Basophils Percent Auto 1.1 % (0-2); Eosinophils Absolute Auto 200 /uL (0-450); Eosinophils Percent Auto 4.1 % (2-4); Hematocrit 40.7 % (36-46); Hemoglobin 14.2 g/dL (12.0-16.0); Lymphocytes Absolute Auto 2300 /uL (1100-4500); Lymphocytes Percent Auto 39.9 % (25-40); Mean Corpuscular HGB Conc 34.9 % (30-36); Mean Corpuscular Volume 91.5 fL (80-100); Monocytes Absolute Auto 500 /uL (0-900); Monocytes Percent Auto 9.2 % (3-14); Neutrophils Absolute Auto 2700 /uL (1500-7000); Neutrophils Percent Auto 45.7 % (50-75); Platelet Count 328 X10^3/uL (150-400); Red Blood Cell Count 4.45 X10^6/uL (4.0-5.2); Red Cell Distribution Width 12.7 % (11.6-14.8); White Blood Cell Count 5.9 X10^3/uL (4.5-11.0)
[2024-04-23 08:29] LABS: Alanine Aminotransferase 12 IU/L (<35); Albumin 4.2 g/dL (3.5-5.0); Albumin Globulin Ratio 1.4 (1.0-2.8); Alkaline Phosphatase 40 U/L (38-126); Aspartate Aminotransferase 21 IU/L (14-36); BUN Creatinine Ratio 18.7 (6-22); Bilirubin Total 0.5 mg/dL (0.2-1.3); Blood Urea Nitrogen 14 mg/dL (7-17); Calcium 9.3 mg/dL (8.4-10.2); Carbon Dioxide 28 mmol/L (22-32); Chloride 102 mmol/L (98-107); Cholesterol 257 mg/dL (140-199); Estimated Glomerular Filt Rate > 60 mL/min (>60); Glucose 102 mg/dL (70-100); HDL Cholesterol 60 mg/dL (40-60); HEMOLYSIS < 15 (0-50); LDL Cholesterol Calculated 182 mg/dL (<100); Potassium 4.2 mmol/L (3.4-5.1); Sodium 136 mmol/L (137-145); Total Protein 7.2 g/dL (6.3-8.2); Triglycerides 74 mg/dL (35-150)
[2024-04-23 08:52] LABS: TSH w/ Reflex to FT4 2.76 uIU/mL (0.47-4.68)
== END ==
PROVIDERS: Family Provider Family Medicine; PCP Family Medicine; Referring Provider Family Medicine; Visit Provider Family Medicine
DX: E03.9 Hypothyroidism, unspecified (principal); Z13.220 Encounter for screening for lipoid disorders
CPT/HCPCS: 36415; 80053; 80061; 84443; 85025

== ENCOUNTER → 2024-12-09 14:40 | Outpatient (CLI) | payer OTHER, SELFPAY ==
--- NOTE | 2024-12-09 14:41 | DI.MG.S_ITS ---
MM screening mammo BI: 12/09/2024. BI-RADS: 1 CLINICAL: 44-year old female for bilateral screening mammogram. Tyrer-Cuzick lifetime risk of 14.0%. No personal or first-degree family history of breast cancer. Current reported family history of breast cancer: maternal aunt. PRIOR EXAMS 12/04/2023, 11/09/2022, 09/17/2021. MAMMOGRAPHY TECHNIQUE: 2D and 3D (tomosynthesis) digital mammographic views obtained, with additional images as needed for full coverage. Current study was also evaluated with a Computer Aided Detection (CAD) system. DENSITY C. The breasts are heterogeneously dense, which may obscure small masses. MAMMOGRAPHY FINDINGS Bilateral: No suspicious mass, asymmetry, microcalcification, or other abnormality seen. IMPRESSION: * No evidence of malignancy. RECOMMENDATIONS Bilateral * Annual screening mammography. OVERALL ASSESSMENT CATEGORY BI-RADS-1: Negative. The [employer] recommends annual screening mammography beginning at age 40 for women with average risk of breast cancer. ELECTRONICALLY SIGNED: Khanh Merino M.D. on 12/10/2024 at 01:26:51 PM PT Interpreting Station ID: [id number]
== END ==
LOC: MAMMO 14:40
PROVIDERS: PCP Family Medicine; Referring Provider Family Medicine; Visit Provider Family Medicine
DX: Z12.31 Encounter for screening mammogram for malignant neoplasm of breast (principal); Z80.3 Family history of malignant neoplasm of breast
CPT/HCPCS: 77063; 77067

== ENCOUNTER → 2025-04-25 08:24 | Outpatient (CLI) | payer OTHER, SELFPAY ==
[2025-04-25 09:10] LABS: Add Manual Diff / Slide Review NO; Hematocrit 38.9 % (36-46); Hemoglobin 13.8 g/dL (12.0-16.0); Lymphocytes Absolute Auto 2300 /uL (1100-4500); Mean Corpuscular HGB Conc 35.4 % (30-36); Mean Corpuscular Hemoglobin 31.7 PG (26-34); Mean Corpuscular Volume 89.7 fL (80-100); Platelet Count 301 X10^3/uL (150-400)
[2025-04-25 09:41] LABS: Alanine Aminotransferase 16 IU/L (<35); Albumin 4.2 g/dL (3.5-5.0); Albumin Globulin Ratio 1.4 (1.0-2.8); Alkaline Phosphatase 46 U/L (38-126); Blood Urea Nitrogen 9 mg/dL (7-17); Calcium 8.9 mg/dL (8.4-10.2); Carbon Dioxide 27 mmol/L (22-32); Chloride 102 mmol/L (98-107); Cholesterol 236 mg/dL (140-199); Estimated Glomerular Filt Rate > 60 mL/min (>60); Globulin 2.9 g/dL (1.7-4.1); Glucose 95 mg/dL (70-99); HDL Cholesterol 55 mg/dL (40-60); HEMOLYSIS < 15 (0-50); Potassium 3.7 mmol/L (3.4-5.1); Sodium 136 mmol/L (137-145); Total Protein 7.1 g/dL (6.3-8.2); Triglycerides 90 mg/dL (35-150)
[2025-04-25 10:09] LABS: TSH w/ Reflex to FT4 1.08 uIU/mL (0.47-4.68)
== END ==
PROVIDERS: PCP Family Medicine; Referring Provider Family Medicine; Visit Provider Family Medicine
DX: E89.0 Postprocedural hypothyroidism (principal); Z00.00 Encounter for general adult medical examination without abnormal findings; Z13.220 Encounter for screening for lipoid disorders
CPT/HCPCS: 36415; 80053; 80061; 84443; 85025